=== PATIENT | female | born 1975 | race American Indian/Alaskan Native ===

== ENCOUNTER 2020-12-31 11:58 | Inpatient (IN) | payer MEDICAID ==
[2020-12-31] MEDS ORDERED: dexAMETHasone 4 MG/ML VIAL IV ONE (13:00)
[2020-12-31] MEDS ORDERED: ACETAMINOPHEN 500 MG TAB PO ONE (13:01)
--- NOTE | 2020-12-31 13:06 | Emergency Department Report ---
ED General Adult HPI - General Chief complaint: Dyspnea/Respdistress Stated complaint: COVID SYMPTOMS PUI?: Yes Time Seen by Provider: 12/31/20 12:50 Source: patient, EMS ( EMS documentation not available at time of chart dictation ), RN notes reviewed Mode of arrival: Stretcher Limitations: Physical Limitation - History of Present Illness Initial comments: The patient was evaluated in the emergency department for symptoms described in the history of present illness. He/she was evaluated in the context of the global COVID-19 pandemic, which necessitated consideration that the patient might be at risk for infection with the virus that causes COVID-19. Institutional protocols and algorithms that pertain to the evaluation of patients at risk for COVID-19 are in a state of rapid change based on information released by regulatory bodies including the CDC and federal and state organizations. These policies and algorithms were followed during the patient's care in the emergency department. Please note that these policies, procedures and recommendations changed on a rapid basis. During the entire history and physical examination, I had on complete personal protective equipment. The patient is a 45-year-old female who is not known to myself previously. She is not vaccinated against COVID-19. She states that she is not . She does not smoke, consume alcohol, denies recreational habits, also reports that she typically does not have a primary care physician, see physicians or take medications. She presents to the ER on day 7 with typical Covid symptoms. Symptoms include cough, fever, shortness of breath, loss of taste and smell, myalgias. Denies severe headache, neck pain, chest pain, abdominal pain, urinary symptoms, focal extremity weakness and numbness. Hypoxic in the field to 88%, also febrile in the field with a fever of 103 degrees. Given albuterol, supplemental oxygen, and Tylenol prior to my personal evaluation by EMS. -: Gradual, days(s) Consistency: constant Improves with: none Worsens with: movement - Related Data Allergies Allergy/AdvReac Type Severity Reaction Status Date / Time No Known Allergies Allergy Verified 12/31/20 13:04 ED Review of Systems ROS: Stated complaint: COVID SYMPTOMS Other details as noted in HPI Constitutional: fever, malaise, weakness Eyes: denies: eye discharge ENT: congestion Respiratory: shortness of breath Cardiovascular: denies: chest pain Gastrointestinal: denies: abdominal pain Genitourinary: denies: dysuria Musculoskeletal: arthralgia, myalgia Neurological: weakness Hematological/Lymphatic: denies: easy bleeding ED Physical Exam - General Limitations: Physical Limitation General appearance: alert, anxious, obese - Head Head exam: Present: atraumatic, normocephalic - Eye Eye exam: Present: normal appearance, EOMI. Absent: nystagmus - ENT ENT exam: Present: normal exam, normal orophraynx, mucous membranes moist, normal external ear exam - Neck Neck exam: Present: normal inspection, full ROM. Absent: tenderness, meningismus - Respiratory Respiratory exam: Present: accessory muscle use, other (Pulmonary auscultation not performed secondary to lack of disposable stethoscope). Absent: stridor - Cardiovascular Cardiovascular Exam: Present: regular rate, normal rhythm, other (Regular rate and rhythm noted on residential monitor. Auscultation not performed secondary to lack of disposable stethoscope) - GI/Abdominal GI/Abdominal exam: Present: soft. Absent: distended, tenderness, guarding, rebound, rigid, pulsatile mass - Extremities Exam Extremities exam: Present: normal inspection, full ROM, other (2+ pulses noted in the bilateral upper and lower extremities. There is no palpable cord. negative Homans sign. Muscular compartments are soft. The pelvis is stable.). Absent: pedal edema, calf tenderness - Back Exam Back exam: Present: normal inspection. Absent: tenderness, CVA tenderness (R), CVA tenderness (L), paraspinal tenderness, vertebral tenderness - Neurological Exam Neurological exam: Present: alert, oriented X3, other (No facial droop. Tongue midline. Extraocular movements intact bilaterally. Facial sensation intact to light touch in V1, V2, V3 distribution bilaterally. 5 and a 5 strength in 4 extremities. Sensation intact to light touch in 4 extremities.). Absent: motor sensory deficit - Psychiatric Psychiatric exam: Present: normal affect, normal mood - Skin Skin exam: Present: warm, dry, intact, normal color. Absent: rash ED Course Vital Signs 12/31/20 12/31/20 12/31/20 12:49 12:54 13:01 Temperature 98.9 F Pulse Rate 90 79 89 Respiratory 15 26 H 18 Rate Blood Pressure 108/66 Blood Pressure 105/70 [Left] O2 Sat by Pulse 99 96 99 Oximetry 12/31/20 12/31/20 12/31/20 13:15 13:31 13:45 Temperature Pulse Rate 89 87 83 Respiratory 17 25 H 27 H Rate Blood Pressure 114/62 104/59 112/67 Blood Pressure [Left] O2 Sat by Pulse 96 99 100 Oximetry 12/31/20 12/31/20 12/31/20 14:01 14:15 14:30 Temperature Pulse Rate 87 83 90 Respiratory 19 25 H 19 Rate Blood Pressure 110/62 120/62 120/62 Blood Pressure [Left] O2 Sat by Pulse 96 98 91 Oximetry 12/31/20 12/31/20 14:46 15:00 Temperature Pulse Rate 84 89 Respiratory 24 29 H Rate Blood Pressure 116/74 Blood Pressure [Left] O2 Sat by Pulse 99 97 Oximetry - Reevaluation(s) Reevaluation #1: 12/31/20 13:04 Differential diagnosis, including but not limited to: COVID-19, hypoxic respiratory failure, COVID-19 vaccination not done Assessment and plan: 45-year-old female with acute hypoxic respiratory failure, likely secondary to COVID-19. Patient requiring 3 L of supplemental oxygen. Counseled patient on natural history of COVID-19. Strongly encourage patient to consider outpatient vaccination series once she has recovered. Recommend admission to the medical service for hypoxic respiratory failure. Administer steroids, continue supplemental oxygen, obtain typical laboratory studies. Have discussed this plan of care with the patient. She has articulated understanding. She is agreeable to this plan of care. Defer to inpatient team to obtain ID consult to assess for suitability for re mdesivir 12/31/20 13:49 laboratory studies demonstrate elevated inflammatory markers, hypokalemia, microcytic anemia. Patient denies bright red blood per rectum and hematemesis to myself. Start iron sulfate, potassium supplementation. Hospital physician, Dr. Geo Naidu to admit ED Medical Decision Making - Lab Data Result diagrams: 12/31/20 13:06 12/31/20 13:06 Vital Signs 12/31/20 12/31/20 12/31/20 12:49 12:54 13:01 Temperature 98.9 F Pulse Rate 90 79 89 Respiratory 15 26 H 18 Rate Blood Pressure 108/66 Blood Pressure 105/70 [Left] O2 Sat by Pulse 99 96 99 Oximetry Lab Results 12/31/20 12/31/20 12/31/20 Range/Units 13:06 13:06 13:06 WBC 3.7 L (4.5-11.0) K/mm3 RBC 4.78 (3.65-5.03) M/mm3 Hgb 8.8 L (10.1-14.3) gm/dl Hct 29.1 L (30.3-42.9) % MCV 61 L (79-97) fl MCH 18 L (28-32) pg MCHC 30 (30-34) % RDW 19.3 H (13.2-15.2) % Plt Count 334 (140-440) K/mm3 Lymph % (Auto) 17.8 (13.4-35.0) % [place] % (Auto) 9.9 H (0.0-7.3) % Eos % (Auto) 0.0 (0.0-4.3) % Baso % (Auto) 0.5 (0.0-1.8) % Lymph # (Auto) 0.7 L (1.2-5.4) K/mm3 [place] # (Auto) 0.4 (0.0-0.8) K/mm3 Eos # (Auto) 0.0 (0.0-0.4) K/mm3 Baso # (Auto) 0.0 (0.0-0.1) K/mm3 Seg Neutrophils % 71.8 H (40.0-70.0) % Seg Neutrophils # 2.6 (1.8-7.7) K/mm3 PT 13.4 (12.2-14.9) Sec. INR 0.96 (0.87-1.13) APTT 36.1 (24.2-36.6) Sec. D-Dimer 141.20 (0-234) ng/mlDDU Sodium 136 L (137-145) mmol/L Potassium 3.4 L (3.6-5.0) mmol/L Chloride 97.6 L (98-107) mmol/L Carbon Dioxide 28 (22-30) mmol/L Anion Gap 14 mmol/L BUN 11 (7-17) mg/dL Creatinine 0.7 (0.6-1.2) mg/dL Estimated GFR > 60 ml/min BUN/Creatinine Ratio 16 % Glucose 98 (65-100) mg/dL Calcium 8.7 (8.4-10.2) mg/dL Magnesium 2.10 (1.7-2.3) mg/dL Total Bilirubin 0.30 (0.1-1.2) mg/dL AST 49 H (5-40) units/L ALT 31 (7-56) units/L Alkaline Phosphatase 37 (35-129) units/L Lactate Dehydrogenase (91-180) units/L C-Reactive Protein (0.00-1.30) mg/dL Total Protein 7.3 (6.3-8.2) g/dL Albumin 3.7 L (3.9-5) g/dL Albumin/Globulin Ratio 1.0 % // Range/Units 13:06 WBC (4.5-11.0) K/mm3 RBC (3.65-5.03) M/mm3 Hgb (10.1-14.3) gm/dl Hct (30.3-42.9) % MCV (79-97) fl MCH (28-32) pg MCHC (30-34) % RDW (13.2-15.2) % Plt Count (140-440) K/mm3 Lymph % (Auto) (13.4-35.0) % [place] % (Auto) (0.0-7.3) % Eos % (Auto) (0.0-4.3) % Baso % (Auto) (0.0-1.8) % Lymph # (Auto) (1.2-5.4) K/mm3 [place] # (Auto) (0.0-0.8) K/mm3 Eos # (Auto) (0.0-0.4) K/mm3 Baso # (Auto) (0.0-0.1) K/mm3 Seg Neutrophils % (40.0-70.0) % Seg Neutrophils # (1.8-7.7) K/mm3 PT (12.2-14.9) Sec. INR (0.87-1.13) APTT (24.2-36.6) Sec. D-Dimer (0-234) ng/mlDDU Sodium (137-145) mmol/L Potassium (3.6-5.0) mmol/L Chloride (98-107) mmol/L Carbon Dioxide (22-30) mmol/L Anion Gap mmol/L BUN (7-17) mg/dL Creatinine (0.6-1.2) mg/dL Estimated GFR ml/min BUN/Creatinine Ratio % Glucose (65-100) mg/dL Calcium (8.4-10.2) mg/dL Magnesium (1.7-2.3) mg/dL Total Bilirubin (0.1-1.2) mg/dL AST (5-40) units/L ALT (7-56) units/L Alkaline Phosphatase (35-129) units/L Lactate Dehydrogenase 299 H (91-180) units/L C-Reactive Protein 2.40 H (0.00-1.30) mg/dL Total Protein (6.3-8.2) g/dL Albumin (3.9-5) g/dL Albumin/Globulin Ratio % - EKG Data -: EKG Interpreted by Ct EKG shows normal: sinus rhythm Rate: tachycardia - EKG Data 12/31/20 13:39 EKG interpreted at 13: 27 Sinus rhythm, 86 bpm. Normal axis, normal P wave axis. Atrial enlargement. Abnormal EKG. Not a STEMI. Poor R wave progression - Radiology Data Radiology results: pending, report reviewed, image reviewed [facility] [address] [place] [address] XRay Report Signed Patient: JOSEPH GOMEZ MR#: [id number] : 1975 Acct:[id number] Age/Sex: 45 / F ADM Date: 12/31/20 Loc: ED Attending Dr: Ordering Physician: KIARRA STEVE MD Date of Service: 12/31/20 Procedure(s): XR chest 1V ap Accession Number(s): [id number] cc: KIARRA STEVE MD Fluoro Time In Minutes: CHEST 1 VIEW 12/31/2020 2:45 PM INDICATION / CLINICAL INFORMATION: Dyspnea. COMPARISON: None available. FINDINGS: SUPPORT DEVICES: None. HEART / MEDIASTINUM: Borderline enlarged LUNGS / PLEURA: Suboptimal in spiratory effort with moderate bilateral parenchymal disease both mid to lower lung [place] characteristic for Covid pneumonia No pneumothorax. ADDITIONAL FINDINGS: No significant additional findings. IMPRESSION: 1. Moderate bilateral Covid pneumonia Signer Name: Link Ellis MD Signed: 12/31/2020 3:15 PM Workstation Name: [id number] Transcribed By: TL Dictated By: Link Ellis MD Electronically Authenticated By: Link Ellis MD Signed Date/Time: 12/31/20 1515 DD/ 1514 Critical care attestation.: If time is entered above; I have spent that time in minutes in the direct care of this critically ill patient, excluding procedure time. ED Disposition Clinical Impression: Acute respiratory failure with hypoxia, Suspected COVID-19 virus infection, COVID-19 vaccination not done, Microcytic anemia, Hypokalemia Disposition: ADMITTED INPATIENT Is pt being admited?: Yes Does the pt Need Aspirin: No Condition: Fair Referrals: PRIMARY CARE, [Primary Care Provider] - 3-5 Days
[2020-12-31 13:33] LABS: Basophils % (Auto) 0.5 % (0.0-1.8); Hematocrit 29.1 % (30.3-42.9); Hemoglobin 8.8 gm/dl (10.1-14.3); Lymphocytes # (Auto) 0.7 K/mm3 (1.2-5.4); Lymphocytes % (Auto) 17.8 % (13.4-35.0); Mean Corpuscular HGB Conc 30 % (30-34); Mean Corpuscular Volume 61 fl (79-97); Monocytes # (Auto) 0.4 K/mm3 (0.0-0.8); Monocytes % (Auto) 9.9 % (0.0-7.3); Platelet Count 334 K/mm3 (140-440); Red Blood Count 4.78 M/mm3 (3.65-5.03); Red Cell Distribution Width 19.3 % (13.2-15.2)
[2020-12-31 13:44] LABS: INR 0.96 (0.87-1.13)
[2020-12-31 13:45] LABS: Partial Thromboplastin Time 36.1 Sec. (24.2-36.6)
[2020-12-31 13:46] LABS: Alanine Aminotransferase 31 units/L (7-56); Albumin 3.7 g/dL (3.9-5); Blood Urea Nitrogen 11 mg/dL (7-17); Calcium 8.7 mg/dL (8.4-10.2); Hemolysis Index 1
[2020-12-31 13:47] LABS: BUN/Creatinine Ratio 16; C-Reactive Protein 2.4 mg/dL (0.00-1.30)
[2020-12-31] MEDS ORDERED: POTASSIUM CHLORIDE ER 20 MEQ TAB PO ONE (13:48)
[2020-12-31] MEDS ORDERED: FERROUS SULFATE 325 MG TAB PO ONE (13:49)
[2020-12-31 14:25] LABS: HCG,Quantitative < 0.500 mIU/mL (0-4)
[2020-12-31] MEDS ORDERED: AZITHROMYCIN/NS 500 MG/250 ML 500 MG/250 ML BAG IV ONE (15:07)
--- NOTE | 2020-12-31 15:19 | XRay Report ---
CHEST 1 VIEW 12/31/2020 2:45 PM INDICATION / CLINICAL INFORMATION: Dyspnea. COMPARISON: None available. FINDINGS: SUPPORT DEVICES: None. HEART / MEDIASTINUM: Borderline enlarged LUNGS / PLEURA: Suboptimal inspiratory effort with moderate bilateral parenchymal disease both mid to lower lung [place] characteristic for Covid pneumonia No pneumothorax. ADDITIONAL FINDINGS: No significant additional findings. IMPRESSION: 1. Moderate bilateral Covid pneumonia Signer Name: Link Ellis MD Signed: 12/31/2020 3:15 PM Workstation Name: [id number]
[2020-12-31] MEDS ORDERED: cefTRIAXone/NS 1 GM/50 ML 1 GM/50 ML BAG IV ONE (16:00)
--- NOTE | 2021-01-01 07:03 | History and Physical Report ---
History of Present Illness Date of examination: 12/31/20 Date of admission: 12/31/20 13:50 Chief complaint: Fever shortness of breath and body aches for 3 days. History of present illness: Foot 45-year-old female with no significant past medical history comes in for cough fever shortness of breath loss of taste and smell and body aches for 3 days. Denies severe headache neck pain chest pain and abdominal pain. In in the emergency room patient was hypoxic at 88%. Also fever of 103 degrees. Was given albuterol supplemental oxygen and Tylenol. Patient being admitted for highly likely Covid pneumonia patient is unvaccinated. Past History Past Medical History: No medical history Past Surgical History: No surgical history Social history: lives with family, full code Family history: hypertension Medications and Allergies Allergies Allergy/AdvReac Type Severity Reaction Status Date / Time No Known Allergies Allergy Verified 12/31/20 13:04 Review of Systems All systems: negative Constitutional: fever, chills, fatigue, poor appetite Cardiovascular: shortness of breath Respiratory: cough, cough with sputum, shortness of breath, dyspnea on exertion Gastrointestinal: nausea Exam - Constitutional Vitals: Temp Pulse Resp BP Pulse Ox 98.9 F 92 H 30 H 101/65 96 12/31/20 12:54 12/31/20 18:30 12/31/20 18:30 12/31/20 18:30 12/31/20 21:40 General appearance: Present: mild distress, well-nourished - EENT Eyes: Present: PERRL ENT: hearing intact, clear oral mucosa - Neck Neck: Present: supple, normal ROM - Respiratory Respiratory effort: normal Respiratory: bilateral: CTA - Cardiovascular Heart rate: 78 Rhythm: regular Heart Sounds: Present: S1 & S2. Absent: rub, click - Extremities Extremities: pulses symmetrical, No edema Peripheral Pulses: within normal limits - Abdominal General gastrointestinal: Present: soft, non-tender, non-distended, normal bowel sounds Female genitourinary: Present: normal - Integumentary Integumentary: Present: clear, warm, dry - Musculoskeletal Musculoskeletal: gait normal, strength equal bilaterally - Psychiatric Psychiatric: appropriate mood/affect, intact judgment & insight - Neurologic Neurologic: CNII-XII intact, moves all extremities Results - Labs CBC & Chem 7: 12/31/20 13:06 12/31/20 13:06 Labs: Laboratory Last Values WBC 3.7 K/mm3 (4.5-11.0) L 12/31/20 13:06 RBC 4.78 M/mm3 (3.65-5.03) 12/31/20 13:06 Hgb 8.8 gm/dl (10.1-14.3) L 12/31/20 13:06 Hct 29.1 % (30.3-42.9) L 12/31/20 13:06 MCV 61 fl (79-97) L 12/31/20 13:06 MCH 18 pg (28-32) L 12/31/20 13:06 MCHC 30 % (30-34) 12/31/20 13:06 RDW 19.3 % (13.2-15.2) H 12/31/20 13:06 Plt Count 334 K/mm3 (140-440) 12/31/20 13:06 Lymph % (Auto) 17.8 % (13.4-35.0) 12/31/20 13:06 [place] % (Auto) 9.9 % (0.0-7.3) H 12/31/20 13:06 Eos % (Auto) 0.0 % (0.0-4.3) 12/31/20 13:06 Baso % (Auto) 0.5 % (0.0-1.8) 12/31/20 13:06 Lymph # (Auto) 0.7 K/mm3 (1.2-5.4) L 12/31/20 13:06 [place] # (Auto) 0.4 K/mm3 (0.0-0.8) 12/31/20 13:06 Eos # (Auto) 0.0 K/mm3 (0.0-0.4) 12/31/20 13:06 Baso # (Auto) 0.0 K/mm3 (0.0-0.1) 12/31/20 13:06 Seg Neutrophils % 71.8 % (40.0-70.0) H 12/31/20 13:06 Seg Neutrophils # 2.6 K/mm3 (1.8-7.7) 12/31/20 13:06 PT 13.4 Sec. (12.2-14.9) 12/31/20 13:06 INR 0.96 (0.87-1.13) 12/31/20 13:06 APTT 36.1 Sec. (24.2-36.6) 12/31/20 13:06 D-Dimer 141.20 ng/mlDDU (0-234) 12/31/20 13:06 Sodium 136 mmol/L (137-145) L 12/31/20 13:06 Potassium 3.4 mmol/L (3.6-5.0) L 12/31/20 13:06 Chloride 97.6 mmol/L (98-107) L 12/31/20 13:06 Carbon Dioxide 28 mmol/L (22-30) 12/31/20 13:06 Anion Gap 14 mmol/L 12/31/20 13:06 BUN 11 mg/dL (7-17) 12/31/20 13:06 Creatinine 0.7 mg/dL (0.6-1.2) 12/31/20 13:06 Estimated GFR > 60 ml/min 12/31/20 13:06 BUN/Creatinine Ratio 16 % 12/31/20 13:06 Glucose 98 mg/dL (65-100) 12/31/20 13:06 Calcium 8.7 mg/dL (8.4-10.2) 12/31/20 13:06 Magnesium 2.10 mg/dL (1.7-2.3) 12/31/20 13:06 Ferritin 60.6 ng/mL (10.0-200.0) 12/31/20 13:06 Total Bilirubin 0.30 mg/dL (0.1-1.2) 12/31/20 13:06 AST 49 units/L (5-40) H 12/31/20 13:06 ALT 31 units/L (7-56) 12/31/20 13:06 Alkaline Phosphatase 37 units/L (35-129) 12/31/20 13:06 Lactate Dehydrogenase 299 units/L (91-180) H 12/31/20 13:06 C-Reactive Protein 2.40 mg/dL (0.00-1.30) H 12/31/20 13:06 Total Protein 7.3 g/dL (6.3-8.2) 12/31/20 13:06 Albumin 3.7 g/dL (3.9-5) L 12/31/20 13:06 Albumin/Globulin Ratio 1.0 % 12/31/20 13:06 Procalcitonin < 0.05 ng/mL (<0.15) 12/31/20 13:06 HCG, Quant < 0.500 mIU/mL (0-4) 12/31/20 13:06 Microbiology: Microbiology 12/31/20 15:25 Peripheral/Venous Blood Culture - Preliminary Culture in Progress 12/31/20 15:25 Peripheral/Venous Blood Culture - Preliminary Culture in Progress - Imaging and Cardiology Chest x-ray: report reviewed Imaging and Cardiology: Chest x-ray Moderate bilateral COVID pneumonia Assessment and Plan Advance Directives: Yes (Full code) VTE prophylaxis?: Chemical Plan of care discussed with patient/family: Yes - Patient Problems (1) Acute respiratory failure with hypoxia Current Visit: Yes Status: Acute Plan to address problem: Patient on 4 L nasal cannula oxygen Titrate oxygen to keep the sats level above 92% (2) SIRS (systemic inflammatory response syndrome) Current Visit: Yes Status: Acute Plan to address problem: Inflammatory markers are elevated LDH is 299 CRP is 2.4 (3) Bilateral pneumonia Current Visit: Yes Status: Acute Plan to address problem: Treat as currently acquired pneumonia for now Discontinue antibiotics if procalcitonin is normal ID consult requested (4) Suspected COVID-19 virus infection Current Visit: Yes Status: Acute Plan to address problem: Coronavirus PCR in a.m. IV Decadron at 8 mg every 24 initiated (5) Hypokalemia Current Visit: Yes Status: Acute Plan to address problem: Supplemented (6) Anemia Current Visit: Yes Status: Chronic Qualifiers: Anemia type: unspecified type Qualified Code(s): D64.9 - Anemia, unspecified Plan to address problem: Anemia work-up (7) Hyponatremia Current Visit: Yes Status: Acute Plan to address problem: IV fluids for 10 to 12 hours in the form of normal saline (8) Hypokalemia Current Visit: Yes Status: Acute Plan to address problem: Supplemented (9) Transaminitis Current Visit: Yes Status: Acute Plan to address problem: Mild Possibly secondary to Covid (10) DVT prophylaxis Current Visit: Yes Status: Acute Plan to address problem: On anticoagulation and GI prophylaxis
[2021-01-01] MEDS ORDERED: POTASSIUM CHLORIDE ER 20 MEQ TAB PO NR (07:30)
--- NOTE | 2021-01-01 08:24 | Progress Note ---
Assessment and Plan Assessment and plan: --Acute respiratory failure with hypoxia Current Visit: Yes Status: Acute Patient on 4 L nasal cannula oxygen Titrate oxygen to keep the sats level above 92% -- SIRS (systemic inflammatory response syndrome) Current Visit: Yes Status: Acute Inflammatory markers are elevated LDH is 299 CRP is 2.4 --Bilateral pneumonia Current Visit: Yes Status: Acute Treat as currently acquired pneumonia for now Discontinue antibiotics if procalcitonin is normal ID consult requested --PUI/ suspected COVID-19 virus infection Current Visit: Yes Status: Acute Coronavirus PCR in a.m. IV Decadron at 8 mg every 24 initiated --Hypokalemia Current Visit: Yes Status: Acute Supplemented -- Anemia Current Visit: Yes Status: Chronic Anemia work-up --Hyponatremia Current Visit: Yes Status: Acute IV fluids for 10 to 12 hours in the form of normal saline -- Hypokalemia Current Visit: Yes Status: Acute Supplemented -- Transaminitis Current Visit: Yes Status: Acute Plan to address problem: Mild Possibly secondary to Covid --Morbid obesity; BMI 41.3/obesity hypoventilation Current Visit: Yes Status: Chronic Outpatient sleep study to rule out obstructive sleep apnea Patient needs weight reduction when medically stable -- DVT prophylaxis Current Visit: Yes Status: Acute Plan to address problem: On anticoagulation and GI prophylaxis History Interval history: I have seen and examined the patient at the bedside this morning Patient's chart and medications reviewed Patient complains of mild shortness of breath Hospitalist Physical - Constitutional Vitals: Temp Pulse Resp BP Pulse Ox 98.9 F 90 14 106/68 93 12/31/20 12:54 01/01/21 07:30 01/01/21 07:30 01/01/21 07:30 01/01/21 07:30 General appearance: Present: mild distress, well-nourished, obese (Morbidly obese) - EENT Eyes: Present: PERRL, EOM intact - Neck Neck: Present: supple, normal ROM - Respiratory Respiratory effort: normal Respiratory: bilateral: diminished, negative: rales, rhonchi, wheezing - Cardiovascular Rhythm: regular Heart Sounds: Present: S1 & S2 - Extremities Extremities: no ischemia, No edema - Abdominal General gastrointestinal: soft, non-tender, non-distended, normal bowel sounds - Integumentary Integumentary: Present: clear, warm - Psychiatric Psychiatric: appropriate mood/affect, cooperative - Neurologic Neurologic: CNII-XII intact, moves all extremities Results - Labs CBC & Chem 7: 12/31/20 13:06 01/01/21 10:57 Labs: Laboratory Last Values WBC 3.7 K/mm3 (4.5-11.0) L 12/31/20 13:06 RBC 4.78 M/mm3 (3.65-5.03) 12/31/20 13:06 Hgb 8.8 gm/dl (10.1-14.3) L 12/31/20 13:06 Hct 29.1 % (30.3-42.9) L 12/31/20 13:06 MCV 61 fl (79-97) L 12/31/20 13:06 MCH 18 pg (28-32) L 12/31/20 13:06 MCHC 30 % (30-34) 12/31/20 13:06 RDW 19.3 % (13.2-15.2) H 12/31/20 13:06 Plt Count 334 K/mm3 (140-440) 12/31/20 13:06 Lymph % (Auto) 17.8 % (13.4-35.0) 12/31/20 13:06 [place] % (Auto) 9.9 % (0.0-7.3) H 12/31/20 13:06 Eos % (Auto) 0.0 % (0.0-4.3) 12/31/20 13:06 Baso % (Auto) 0.5 % (0.0-1.8) 12/31/20 13:06 Lymph # (Auto) 0.7 K/mm3 (1.2-5.4) L 12/31/20 13:06 [place] # (Auto) 0.4 K/mm3 (0.0-0.8) 12/31/20 13:06 Eos # (Auto) 0.0 K/mm3 (0.0-0.4) 12/31/20 13:06 Baso # (Auto) 0.0 K/mm3 (0.0-0.1) 12/31/20 13:06 Seg Neutrophils % 71.8 % (40.0-70.0) H 12/31/20 13:06 Seg Neutrophils # 2.6 K/mm3 (1.8-7.7) 12/31/20 13:06 PT 13.4 Sec. (12.2-14.9) 12/31/20 13:06 INR 0.96 (0.87-1.13) 12/31/20 13:06 APTT 36.1 Sec. (24.2-36.6) 12/31/20 13:06 D-Dimer 141.20 ng/mlDDU (0-234) 12/31/20 13:06 Sodium 136 mmol/L (137-145) L 12/31/20 13:06 Potassium 3.4 mmol/L (3.6-5.0) L 12/31/20 13:06 Chloride 97.6 mmol/L (98-107) L 12/31/20 13:06 Carbon Dioxide 28 mmol/L (22-30) 12/31/20 13:06 Anion Gap 14 mmol/L 12/31/20 13:06 BUN 11 mg/dL (7-17) 12/31/20 13:06 Creatinine 0.7 mg/dL (0.6-1.2) 12/31/20 13:06 Estimated GFR > 60 ml/min 12/31/20 13:06 BUN/Creatinine Ratio 16 % 12/31/20 13:06 Glucose 98 mg/dL (65-100) 12/31/20 13:06 Calcium 8.7 mg/dL (8.4-10.2) 12/31/20 13:06 Magnesium 2.10 mg/dL (1.7-2.3) 12/31/20 13:06 Ferritin 60.6 ng/mL (10.0-200.0) 12/31/20 13:06 Total Bilirubin 0.30 mg/dL (0.1-1.2) 12/31/20 13:06 AST 49 units/L (5-40) H 12/31/20 13:06 ALT 31 units/L (7-56) 12/31/20 13:06 Alkaline Phosphatase 37 units/L (35-129) 12/31/20 13:06 Lactate Dehydrogenase 299 units/L (91-180) H 12/31/20 13:06 C-Reactive Protein 2.40 mg/dL (0.00-1.30) H 12/31/20 13:06 Total Protein 7.3 g/dL (6.3-8.2) 12/31/20 13:06 Albumin 3.7 g/dL (3.9-5) L 12/31/20 13:06 Albumin/Globulin Ratio 1.0 % 12/31/20 13:06 Procalcitonin < 0.05 ng/mL (<0.15) 12/31/20 13:06 HCG, Quant < 0.500 mIU/mL (0-4) 12/31/20 13:06 Microbiology: Microbiology 12/31/20 15:25 Peripheral/Venous Blood Culture - Preliminary Culture in Progress 12/31/20 15:25 Peripheral/Venous Blood Culture - Preliminary Culture in Progress Active Medications - Current Medications Current Medications: Generic Name Dose Route Start Last Admin Trade Name Freq PRN Reason Stop Dose Admin Potassium Chloride 20 meq 01/01/21 07:30 Potassium Chloride Er 20 Meq Tab PO 01/01/21 12:00 ONCE@0730 NR
[2021-01-01] MEDS: ASCORBIC ACID 500 MG TAB PO SCH ×2 (10:41→22:29)
[2021-01-01] MEDS: ZINC SULFATE 220 MG CAP PO SCH ×2 (10:41→22:29)
[2021-01-01] MEDS: FAMOTIDINE 20 MG TAB PO SCH ×2 (10:41→22:29)
[2021-01-01 11:48] LABS: Blood Urea Nitrogen 11 mg/dL (7-17); Calcium 8.9 mg/dL (8.4-10.2); Hemolysis Index 0
[2021-01-01 11:57] LABS: BUN/Creatinine Ratio 18
[2021-01-01] MEDS ORDERED: dexAMETHasone 4 MG/ML VIAL IV ONE (18:20)
[2021-01-01] MEDS ORDERED: REMDESIVIR 200 MG in SODIUM CHLORIDE 0.9% 250ML 250 ML IV ONE (19:30)
[2021-01-01 19:49] LABS: Alanine Aminotransferase 35 units/L (7-56); Albumin 3.7 g/dL (3.9-5); Blood Urea Nitrogen 11 mg/dL (7-17); Calcium 8.3 mg/dL (8.4-10.2); Hemolysis Index 3
[2021-01-01 19:55] LABS: BUN/Creatinine Ratio 18
[2021-01-01] MEDS: SODIUM CHLORIDE 0.9% 50 ML IVPB IV SCH (22:30)
[2021-01-02 06:05] LABS: Alanine Aminotransferase 33 units/L (7-56); Albumin 3.7 g/dL (3.9-5); Blood Urea Nitrogen 10 mg/dL (7-17); Calcium 8.3 mg/dL (8.4-10.2); Hemolysis Index 0
[2021-01-02 06:22] LABS: BUN/Creatinine Ratio 20
--- NOTE | 2021-01-02 08:54 | Electrocardiograph Report ---
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
[2021-01-02] MEDS: dexAMETHasone 4 MG/ML VIAL IV SCH (10:08)
[2021-01-02] MEDS: ACETAMINOPHEN 325 MG TAB PO PRN (10:08)
[2021-01-02] MEDS: FAMOTIDINE 20 MG TAB PO SCH ×2 (10:08→21:53)
[2021-01-02] MEDS: ASCORBIC ACID 500 MG TAB PO SCH ×2 (10:08→21:53)
[2021-01-02] MEDS: SODIUM CHLORIDE 0.9% 1000 ML 1,000 ML IV SCH (10:10)
[2021-01-02] MEDS: ZINC SULFATE 220 MG CAP PO SCH ×2 (10:10→21:53)
--- NOTE | 2021-01-02 12:54 | Progress Note ---
Assessment and Plan Assessment and plan: --COVID-19 virus infection; solation precautions contact and droplet Patient is hypoxic requiring 2 to 3 L of nasal cannula oxygen Dexamethasone 8 mg IV daily total 10 doses Remdesivir per protocol total 5 doses Prone positioning Check inflammatory markers Home O2 evaluation Supportive medications zinc, ascorbic acid, vitamin D3 ID evaluation noted and appreciated We will closely monitor the patient and adjust the management as needed Plan of care reviewed with the patient and her nurse --Acute respiratory failure with hypoxia Current Visit: Yes Status: Acute Patient on 4 L nasal cannula oxygen Titrate oxygen to keep the sats level above 92% -- SIRS (systemic inflammatory response syndrome) Current Visit: Yes Status: Acute Inflammatory markers are elevated LDH is 299 CRP is 2.4 --Bilateral pneumonia Current Visit: Yes Status: Acute 1 empiric antibiotics, however procalcitonin is normal level No indication for antibiotics, discontinued Oxygen wean as tolerated, home O2 evaluation, follow cultures --Hypokalemia Current Visit: Yes Status: Acute Supplemented -- Anemia Current Visit: Yes Status: Chronic Anemia work-up. Monitor H&H --Hyponatremia/present on admission Current Visit: Yes Status: Acute Improved continue IV fluids normal saline Closely monitor -- Transaminitis Current Visit: Yes Status: Acute Mild, Possibly secondary to Covid --Morbid obesity; BMI 41.3/obesity hypoventilation Current Visit: Yes Status: Chronic Outpatient sleep study to rule out obstructive sleep apnea Patient needs weight reduction when medically stable Diet modification and exercise as tolerated and weight reduction -- DVT prophylaxis Current Visit: Yes Status: Acute On anticoagulation and GI prophylaxis We will closely monitor the patient and adjust management as needed Plan of care reviewed with the patient and her nurse 45-year-old morbidly obese female patient was admitted through emergency room with fever generalized body pains admitted as PUI Kumar PCR is tested positive, patient is evaluated by ID and is receiving treatment per COVID-19 guidelines. Disposition; follow clinically, follow consultants evaluation recommendations, discharge when medically stable Home O2 evaluation, encourage proning . History Interval history: I have seen and examined the patient at the bedside Patient's chart and medications reviewed Patient complains of severe shortness of breath On 3 L nasal cannula Hospitalist Physical - Constitutional Vitals: Temp Pulse Resp BP Pulse Ox 98.9 F 95 H 27 H 115/71 94 12/31/20 12:54 01/02/21 01:00 01/02/21 01:00 01/02/21 06:00 01/02/21 06:00 General appearance: Present: mild distress, well-nourished, obese (Morbidly obese) - EENT Eyes: Present: PERRL, EOM intact - Neck Neck: Present: supple, normal ROM - Cardiovascular Rhythm: regular Heart Sounds: Present: S1 & S2 - Extremities Extremities: no ischemia, No edema - Abdominal General gastrointestinal: soft, non-tender, non-distended, normal bowel sounds - Integumentary Integumentary: Present: clear, warm - Psychiatric Psychiatric: appropriate mood/affect, cooperative - Neurologic Neurologic: CNII-XII intact, moves all extremities Results - Labs CBC & Chem 7: 12/31/20 13:06 01/02/21 05:11 Labs: Laboratory Last Values WBC 3.7 K/mm3 (4.5-11.0) L 12/31/20 13:06 RBC 4.78 M/mm3 (3.65-5.03) 12/31/20 13:06 Hgb 8.8 gm/dl (10.1-14.3) L 12/31/20 13:06 Hct 29.1 % (30.3-42.9) L 12/31/20 13:06 MCV 61 fl (79-97) L 12/31/20 13:06 MCH 18 pg (28-32) L 12/31/20 13:06 MCHC 30 % (30-34) 12/31/20 13:06 RDW 19.3 % (13.2-15.2) H 12/31/20 13:06 Plt Count 334 K/mm3 (140-440) 12/31/20 13:06 Lymph % (Auto) 17.8 % (13.4-35.0) 12/31/20 13:06 [place] % (Auto) 9.9 % (0.0-7.3) H 12/31/20 13:06 Eos % (Auto) 0.0 % (0.0-4.3) 12/31/20 13:06 Baso % (Auto) 0.5 % (0.0-1.8) 12/31/20 13:06 Lymph # (Auto) 0.7 K/mm3 (1.2-5.4) L 12/31/20 13:06 [place] # (Auto) 0.4 K/mm3 (0.0-0.8) 12/31/20 13:06 Eos # (Auto) 0.0 K/mm3 (0.0-0.4) 12/31/20 13:06 Baso # (Auto) 0.0 K/mm3 (0.0-0.1) 12/31/20 13:06 Seg Neutrophils % 71.8 % (40.0-70.0) H 12/31/20 13:06 Seg Neutrophils # 2.6 K/mm3 (1.8-7.7) 12/31/20 13:06 PT 13.4 Sec. (12.2-14.9) 12/31/20 13:06 INR 0.96 (0.87-1.13) 12/31/20 13:06 APTT 36.1 Sec. (24.2-36.6) 12/31/20 13:06 D-Dimer 141.20 ng/mlDDU (0-234) 12/31/20 13:06 Sodium 137 mmol/L (137-145) 01/02/21 05:11 Potassium 3.8 mmol/L (3.6-5.0) 01/02/21 05:11 Chloride 100.0 mmol/L (98-107) 01/02/21 05:11 Carbon Dioxide 26 mmol/L (22-30) 01/02/21 05:11 Anion Gap 15 mmol/L 01/02/21 05:11 BUN 10 mg/dL (7-17) 01/02/21 05:11 Creatinine 0.5 mg/dL (0.6-1.2) L 01/02/21 05:11 Estimated GFR > 60 ml/min 01/02/21 05:11 BUN/Creatinine Ratio 20 % 01/02/21 05:11 Glucose 111 mg/dL (65-100) H 01/02/21 05:11 Calcium 8.3 mg/dL (8.4-10.2) L 01/02/21 05:11 Magnesium 2.10 mg/dL (1.7-2.3) 12/31/20 13:06 Ferritin 60.6 ng/mL (10.0-200.0) 12/31/20 13:06 Total Bilirubin 0.30 mg/dL (0.1-1.2) 01/02/21 05:11 AST 45 units/L (5-40) H 01/02/21 05:11 ALT 33 units/L (7-56) 01/02/21 05:11 Alkaline Phosphatase 38 units/L (35-129) 01/02/21 05:11 Lactate Dehydrogenase 299 units/L (91-180) H 12/31/20 13:06 C-Reactive Protein 2.40 mg/dL (0.00-1.30) H 12/31/20 13:06 Total Protein 7.3 g/dL (6.3-8.2) 01/02/21 05:11 Albumin 3.7 g/dL (3.9-5) L 01/02/21 05:11 Albumin/Globulin Ratio 1.0 % 01/02/21 05:11 Procalcitonin < 0.05 ng/mL (<0.15) 12/31/20 13:06 HCG, Quant < 0.500 mIU/mL (0-4) 12/31/20 13:06 Coronavirus (PCR) Positive (Negative) A 01/01/21 Unknown Microbiology: Microbiology 12/31/20 15:25 Peripheral/Venous Blood Culture - Preliminary NO GROWTH AFTER 24 HOURS 12/31/20 15:25 Peripheral/Venous Blood Culture - Preliminary NO GROWTH AFTER 24 HOURS Active Medications - Current Medications Current Medications: Generic Name Dose Route Start Last Admin Trade Name Freq PRN Reason Stop Dose Admin Acetaminophen 650 mg 01/01/21 09:00 01/02/21 10:08 Acetaminophen 325 Mg Tab PO 650 mg Q4H PRN Administration Pain, Mild (1-3) Ascorbic Acid 500 mg 01/01/21 10:00 01/02/21 10:08 Ascorbic Acid 500 Mg Tab PO 500 mg BID FAREED Administration Dexamethasone 8 mg 01/02/21 10:00 01/02/21 10:08 Dexamethasone 4 Mg/Ml Vial IV 01/11/21 10:01 8 mg DAILY FAREED Administration Famotidine 20 mg 01/01/21 10:00 01/02/21 10:08 Famotidine 20 Mg Tab PO 20 mg BID FAREED Administration Sodium Chloride 1,000 mls @ 75 mls/hr 01/01/21 09:00 01/02/21 10:10 Nacl 0.9% 1000 Ml IV 75 mls/hr DIRECT FAREED Administration REMDESIVIR 100 mg/ Sodium 250 mls @ 500 mls/hr 01/02/21 21:00 Chloride IV 01/05/21 21:29 Q24HR@2100 FAREED Sodium Chloride 50 ml 01/01/21 19:30 01/01/21 22:30 Sodium Chloride 0.9% 50 Ml Ivpb IV 01/04/21 21:01 50 ml Q24HR@2100 FAREED Administration Zinc Sulfate 220 mg 01/01/21 10:00 01/02/21 10:10 Zinc Sulfate 220 Mg Cap PO 220 mg BID FAREED Administration
--- NOTE | 2021-01-02 14:31 | Consultation ---
History of Present Illness - Reason for Consult Consult date: 01/02/21 - History of Present Illness 45-year-old female past medical history morbid obesity presented to hospital complaining of cough, fever, shortness of breath and other common Covid symptoms. The began personally 3 days prior to admission has been more since onset. She otherwise denies any acute symptoms. She was found to be hypoxic to 88% on presentation to the emergency room. She is unvaccinated against Covid. Afebrile with a white count 3.7. Covid positive. Normal renal function. Normal procalcitonin. Blood cultures no growth so far. Currently on dexamethasone and remdesivir. Imaging personally reviewed: Chest x-ray: Moderate bilateral pneumonia Review of systems: Deferred to reduce to the risk of transmission of COVID-19 Past History Past Medical History: No medical history Past Surgical History: No surgical history Social history: lives with family, full code Family history: hypertension Medications and Allergies Allergies Allergy/AdvReac Type Severity Reaction Status Date / Time No Known Allergies Allergy Verified 12/31/20 13:04 Active Meds: Active Medications Acetaminophen (Acetaminophen 325 Mg Tab) 650 mg PO Q4H PRN PRN Reason: Pain, Mild (1-3) Last Admin: 01/02/21 10:08 Dose: 650 mg Documented by: Ascorbic Acid (Ascorbic Acid 500 Mg Tab) 500 mg PO BID [facility] Last Admin: 01/02/21 10:08 Dose: 500 mg Documented by: Dexamethasone (Dexamethasone 4 Mg/Ml Vial) 8 mg IV DAILY [facility] Stop: 01/11/21 10:01 Last Admin: 01/02/21 10:08 Dose: 8 mg Documented by: Famotidine (Famotidine 20 Mg Tab) 20 mg PO BID [facility] Last Admin: 01/02/21 10:08 Dose: 20 mg Documented by: Sodium Chloride (Nacl 0.9% 1000 Ml) 1,000 mls @ 75 mls/hr IV DIRECT [facility] Last Admin: 01/02/21 10:10 Dose: 75 mls/hr Documented by: REMDESIVIR 100 mg/ Sodium (Chloride) 250 mls @ 500 mls/hr IV Q24HR@2100 [facility] Stop: 01/05/21 21:29 Sodium Chloride (Sodium Chloride 0.9% 50 Ml Ivpb) 50 ml IV Q24HR@2100 [facility] Stop: 01/04/21 21:01 Last Admin: 08/30/21 22:30 Dose: 50 ml Documented by: Zinc Sulfate (Zinc Sulfate 220 Mg Cap) 220 mg PO BID FAREED Last Admin: 01/02/21 10:10 Dose: 220 mg Documented by: Physical Examination - Physical Exam Narrative exam: Physical exam deferred to reduce risk of transmission of COVID-19. Please refer to primary team's note. - Constitutional Vitals: Vital Signs Temp Pulse Resp BP Pulse Ox 98.9 F 95 H 27 H 115/71 94 12/31/20 12:54 01/02/21 01:00 01/02/21 01:00 01/02/21 06:00 01/02/21 06:00 Results - Labs CBC & Chem 7: 12/31/20 13:06 01/02/21 05:11 Labs: Abnormal lab results 01/01/21 01/01/21 01/02/21 Range/Units 19:20 Unknown 05:11 Sodium 134 L (137-145) mmol/L Creatinine 0.5 L (0.6-1.2) mg/dL Glucose 103 H 111 H (65-100) mg/dL Calcium 8.3 L 8.3 L (8.4-10.2) mg/dL AST 47 H 45 H (5-40) units/L Albumin 3.7 L 3.7 L (3.9-5) g/dL Coronavirus (PCR) Positive A (Negative) Assessment and Plan Cultures: COVID PCR positive A/P: #Severe COVID-19 pneumonia: Patient presented with a week of symptoms, chest x- ray with diffuse bilateral infiltrates, admission O2 sats 89% on room air. Inflammatory markers elevated #Acute hypoxemic respiratory failure: Likely secondary to COVID-19 infection. Currently on 2L [place] #Morbid obesity Recs: -Dexamethasone 6 mg IV/PO daily for 10 days -Remdesivir 200 mg IV q day x 1 followed by 100 mg IV q day x 4 days -Obtain q48-72h inflammatory markers - ferritin, Ddimer, CRP, LDH -Procalcitonin low, no need for antibiotics -Anticoagulation per hospital protocol -Proning as able Thank you for the consult, we will continue to follow. MD [facility] O: [phone] F: [phone]
[2021-01-02] MEDS: SODIUM CHLORIDE 0.9% 50 ML IVPB IV SCH ×2 (20:18→21:02)
[2021-01-02] MEDS: REMDESIVIR 100 MG in SODIUM CHLORIDE 0.9% 250ML 250 ML IV SCH (21:03)
[2021-01-03] MEDS: guaiFENesin ER 600 MG TAB PO SCH ×3 (02:15→21:30)
[2021-01-03 05:27] LABS: Alanine Aminotransferase 35 units/L (7-56); Albumin 3.5 g/dL (3.9-5); Blood Urea Nitrogen 12 mg/dL (7-17); Calcium 8.1 mg/dL (8.4-10.2); Hemolysis Index 2
[2021-01-03 05:42] LABS: BUN/Creatinine Ratio 24
[2021-01-03] MEDS: BENZONATATE 100 MG CAP PO PRN (06:18)
[2021-01-03] MEDS: dexAMETHasone 4 MG/ML VIAL IV SCH (09:26)
[2021-01-03] MEDS: ZINC SULFATE 220 MG CAP PO SCH ×2 (09:27→22:08)
[2021-01-03] MEDS: FAMOTIDINE 20 MG TAB PO SCH ×2 (09:27→21:30)
[2021-01-03] MEDS: ASCORBIC ACID 500 MG TAB PO SCH ×2 (09:27→21:31)
--- NOTE | 2021-01-03 17:16 | Progress Note ---
Assessment and Plan Cultures: COVID PCR positive A/P: 45 yo F now with: #Severe COVID-19 pneumonia: Patient presented with a week of symptoms, chest x- ray with diffuse bilateral infiltrates, admission O2 sats 89% on room air. Inflammatory markers elevated #Acute hypoxemic respiratory failure: Likely secondary to COVID-19 infection. Currently on 10L [place] #Morbid obesity Recs: -Dexamethasone 6 mg IV/PO daily for 10 days -Remdesivir 200 mg IV q day x 1 followed by 100 mg IV q day x 4 days -CRP low, not on HFNC as such not yet an Actemra candidate -Obtain q48-72h inflammatory markers - ferritin, Ddimer, CRP, LDH -Procalcitonin low, no need for antibiotics -Anticoagulation per hospital protocol -Proning as able Thank you for the consult, we will continue to follow. Alanna Wallis MD [facility] O: [phone] F: [phone] Subjective Date of service: 01/03/21 Interval history: Afebrile, now on 10L [place]. Objective - Exam Narrative Exam: Physical exam deferred to reduce risk of transmission of COVID-19. Please refer to primary team's note. - Constitutional Vitals: Vital Signs Temp Pulse Resp BP Pulse Ox 98.9 F 99 H 19 125/62 96 01/03/21 16:00 01/03/21 16:00 01/03/21 16:00 01/02/21 23:30 01/03/21 16:00 Temperature -Last 24 Hours Temperature 98.9 F Temperature 99.4 F Temperature 98.4 F Temperature 98.4 F Temperature 98.5 F - Labs CBC & Chem 7: 12/31/20 13:06 01/03/21 04:40 Labs: Abnormal lab results 01/03/21 Range/Units 04:40 Creatinine 0.5 L (0.6-1.2) mg/dL Glucose 113 H (65-100) mg/dL Calcium 8.1 L (8.4-10.2) mg/dL AST 45 H (5-40) units/L Albumin 3.5 L (3.9-5) g/dL
--- NOTE | 2021-01-03 19:00 | Progress Note ---
Assessment and Plan Assessment and plan: 45-year-old morbidly obese female patient was admitted through emergency room with fever generalized body pains admitted as PUI Kumar PCR is tested positive, patient is evaluated by ID and is receiving treatment per COVID-19 guidelines. --COVID-19 virus infection; solation precautions contact and droplet Patient is hypoxic requiring 2 to 3 L of nasal cannula oxygen Dexamethasone 8 mg IV daily total 10 doses Remdesivir per protocol total 5 doses Prone positioning Check inflammatory markers Home O2 evaluation Supportive medications zinc, ascorbic acid, vitamin D3 ID evaluation noted and appreciated We will closely monitor the patient and adjust the management as needed Plan of care reviewed with the patient and her nurse --Acute respiratory failure with hypoxia Current Visit: Yes Status: Acute Patient on 4 L nasal cannula oxygen Titrate oxygen to keep the sats level above 92% -- SIRS (systemic inflammatory response syndrome) Current Visit: Yes Status: Acute Inflammatory markers are elevated LDH is 299 CRP is 2.4 --Bilateral pneumonia Current Visit: Yes Status: Acute 1 empiric antibiotics, however procalcitonin is normal level No indication for antibiotics, discontinued Oxygen wean as tolerated, home O2 evaluation, follow cultures --Hypokalemia Current Visit: Yes Status: Acute Supplemented -- Anemia Current Visit: Yes Status: Chronic Anemia work-up. Monitor H&H --Hyponatremia/present on admission Current Visit: Yes Status: Acute Improved continue IV fluids normal saline Closely monitor -- Transaminitis Current Visit: Yes Status: Acute Mild, Possibly secondary to Covid --Morbid obesity; BMI 41.3/obesity hypoventilation Current Visit: Yes Status: Chronic Outpatient sleep study to rule out obstructive sleep apnea Patient needs weight reduction when medically stable Diet modification and exercise as tolerated and weight reduction -- DVT prophylaxis Current Visit: Yes Status: Acute On anticoagulation and GI prophylaxis 01/03: Patient has mild to moderate dyspnea at rest and with conversation. She is currently on 10 L of O2 and FiO2 60%. She is unable to tolerate exertion. The plan is to continue current regimen and wean O2 as tolerated. She will be monitored closely for worsening of hypoxia or respiratory decompensation. Discussed with the patient and the nursing staff. History Interval history: Patient is mild to moderate dyspnea at rest and needing 10 L of O2. She reports painful cough. She does not want to eat food would like to drink Ensure rather. She has some diarrhea. Mentating well. Hospitalist Physical - Constitutional Vitals: Temp Pulse Resp BP Pulse Ox 98.9 F 99 H 19 125/62 95 01/03/21 16:00 01/03/21 16:00 01/03/21 16:00 01/02/21 23:30 01/03/21 17:21 General appearance: Present: mild distress, well-nourished, obese (Morbidly obese) - EENT Eyes: Present: PERRL, EOM intact - Neck Neck: Present: supple. Absent: masses or JVD - Respiratory Respiratory effort: other (Mild to moderate dyspnea at rest and conversation) Respiratory: bilateral: diminished - Cardiovascular Rhythm: regular - Extremities Extremities: No edema Peripheral Pulses: within normal limits - Abdominal General gastrointestinal: soft, non-tender, normal bowel sounds - Integumentary Integumentary: Absent: rash - Psychiatric Psychiatric: appropriate mood/affect - Neurologic Neurologic: moves all extremities Results - Labs CBC & Chem 7: 12/31/20 13:06 01/04/21 05:09 Labs: Laboratory Last Values WBC 3.7 K/mm3 (4.5-11.0) L 12/31/20 13:06 RBC 4.78 M/mm3 (3.65-5.03) 12/31/20 13:06 Hgb 8.8 gm/dl (10.1-14.3) L 12/31/20 13:06 Hct 29.1 % (30.3-42.9) L 12/31/20 13:06 MCV 61 fl (79-97) L 12/31/20 13:06 MCH 18 pg (28-32) L 12/31/20 13:06 MCHC 30 % (30-34) 12/31/20 13:06 RDW 19.3 % (13.2-15.2) H 12/31/20 13:06 Plt Count 334 K/mm3 (140-440) 12/31/20 13:06 Lymph % (Auto) 17.8 % (13.4-35.0) 12/31/20 13:06 [place] % (Auto) 9.9 % (0.0-7.3) H 12/31/20 13:06 Eos % (Auto) 0.0 % (0.0-4.3) 12/31/20 13:06 Baso % (Auto) 0.5 % (0.0-1.8) 12/31/20 13:06 Lymph # (Auto) 0.7 K/mm3 (1.2-5.4) L 12/31/20 13:06 [place] # (Auto) 0.4 K/mm3 (0.0-0.8) 12/31/20 13:06 Eos # (Auto) 0.0 K/mm3 (0.0-0.4) 12/31/20 13:06 Baso # (Auto) 0.0 K/mm3 (0.0-0.1) 12/31/20 13:06 Seg Neutrophils % 71.8 % (40.0-70.0) H 12/31/20 13:06 Seg Neutrophils # 2.6 K/mm3 (1.8-7.7) 12/31/20 13:06 PT 13.4 Sec. (12.2-14.9) 12/31/20 13:06 INR 0.96 (0.87-1.13) 12/31/20 13:06 APTT 36.1 Sec. (24.2-36.6) 12/31/20 13:06 D-Dimer 141.20 ng/mlDDU (0-234) 12/31/20 13:06 Sodium 139 mmol/L (137-145) 01/03/21 04:40 Potassium 4.2 mmol/L (3.6-5.0) 01/03/21 04:40 Chloride 102.9 mmol/L (98-107) 01/03/21 04:40 Carbon Dioxide 23 mmol/L (22-30) 01/03/21 04:40 Anion Gap 17 mmol/L 01/03/21 04:40 BUN 12 mg/dL (7-17) 01/03/21 04:40 Creatinine 0.5 mg/dL (0.6-1.2) L 01/03/21 04:40 Estimated GFR > 60 ml/min 01/03/21 04:40 BUN/Creatinine Ratio 24 % 01/03/21 04:40 Glucose 113 mg/dL (65-100) H 01/03/21 04:40 Calcium 8.1 mg/dL (8.4-10.2) L 01/03/21 04:40 Magnesium 2.10 mg/dL (1.7-2.3) 12/31/20 13:06 Ferritin 60.6 ng/mL (10.0-200.0) 12/31/20 13:06 Total Bilirubin 0.30 mg/dL (0.1-1.2) 01/03/21 04:40 AST 45 units/L (5-40) H 01/03/21 04:40 ALT 35 units/L (7-56) 01/03/21 04:40 Alkaline Phosphatase 38 units/L (35-129) 01/03/21 04:40 Lactate Dehydrogenase 299 units/L (91-180) H 12/31/20 13:06 C-Reactive Protein 2.40 mg/dL (0.00-1.30) H 12/31/20 13:06 Total Protein 6.9 g/dL (6.3-8.2) 01/03/21 04:40 Albumin 3.5 g/dL (3.9-5) L 01/03/21 04:40 Albumin/Globulin Ratio 1.0 % 01/03/21 04:40 Procalcitonin < 0.05 ng/mL (<0.15) 12/31/20 13:06 HCG, Quant < 0.500 mIU/mL (0-4) 12/31/20 13:06 Coronavirus (PCR) Positive (Negative) A 01/01/21 Unknown Microbiology: Microbiology 12/31/20 15:25 Peripheral/Venous Blood Culture - Preliminary NO GROWTH AFTER 72 HOURS 12/31/20 15:25 Peripheral/Venous Blood Culture - Preliminary NO GROWTH AFTER 72 HOURS [place]/IV: Voiding Method External Female Catheter Active Medications - Current Medications Current Medications: Generic Name Dose Route Start Last Admin Trade Name Freq PRN Reason Stop Dose Admin Acetaminophen 650 mg 01/01/21 09:00 01/02/21 10:08 Acetaminophen 325 Mg Tab PO 650 mg Q4H PRN Administration Pain, Mild (1-3) Ascorbic Acid 500 mg 01/01/21 10:00 01/03/21 09:27 Ascorbic Acid 500 Mg Tab PO 500 mg BID FAREED Administration Benzonatate 100 mg 01/03/21 01:09 01/03/21 06:18 Benzonatate 100 Mg Cap PO 100 mg Q8HR PRN Administration Cough Dexamethasone 8 mg 01/02/21 10:00 01/03/21 09:26 Dexamethasone 4 Mg/Ml Vial IV 01/11/21 10:01 8 mg DAILY FAREED Administration Famotidine 20 mg 01/01/21 10:00 01/03/21 09:27 Famotidine 20 Mg Tab PO 20 mg BID FAREED Administration Guaifenesin 600 mg 01/03/21 02:00 01/03/21 09:27 Guaifenesin Er 600 Mg Tab PO 600 mg BID FAREED Administration Sodium Chloride 1,000 mls @ 75 mls/hr 01/01/21 09:00 01/02/21 10:10 Nacl 0.9% 1000 Ml IV 75 mls/hr DIRECT FAREED Administration REMDESIVIR 100 mg/ Sodium 250 mls @ 500 mls/hr 01/02/21 21:00 01/02/21 21:03 Chloride IV 01/05/21 21:29 500 mls/hr Q24HR@2100 FAREED Administration Sodium Chloride 50 ml 01/01/21 19:30 01/02/21 21:02 Sodium Chloride 0.9% 50 Ml Ivpb IV 01/04/21 21:01 50 ml Q24HR@2100 FAREED Administration Zinc Sulfate 220 mg 01/01/21 10:00 01/03/21 09:27 Zinc Sulfate 220 Mg Cap PO 220 mg BID FAREED Administration
[2021-01-03] MEDS: REMDESIVIR 100 MG in SODIUM CHLORIDE 0.9% 250ML 250 ML IV SCH (21:29)
[2021-01-03] MEDS: SODIUM CHLORIDE 0.9% 50 ML IVPB IV SCH (21:29)
[2021-01-03] MEDS: SODIUM CHLORIDE 0.9% 1000 ML 1,000 ML IV SCH (22:09)
[2021-01-04] MEDS: BENZONATATE 100 MG CAP PO PRN ×2 (01:58→22:30)
[2021-01-04 06:21] LABS: Alanine Aminotransferase 30 units/L (7-56); Albumin 3.4 g/dL (3.9-5); Blood Urea Nitrogen 15 mg/dL (7-17); Calcium 8.6 mg/dL (8.4-10.2); Hemolysis Index 0
[2021-01-04 06:30] LABS: BUN/Creatinine Ratio 30
--- NOTE | 2021-01-04 08:52 | Electrocardiograph Report ---
[facility] Test Date: 2021-01-01 Test Time: 15:59:11 Pat Name: JOSEPH GOMEZ Department: Room: A267 Gender: F Environmental Lawyer: CODY : 1975 Requested By: KIARRA STEVE Order Number: [id number] Reading MD: Mata Birch Measurements Intervals [place] Rate: 100 P: 69 [place]: 143 QRS: 20 QRSD: 86 T: 20 QT: 331 QTc: 427 Interpretive Statements Sinus tachycardia NSSTTW'S BORDERLINE LVH Compared to ECG 12/31/2020 13:27:02 Sinus rhythm no longer present Electronically Signed On 01-04-2021 8:52:18 EDT by Mata Birch
[2021-01-04] MEDS: dexAMETHasone 4 MG/ML VIAL IV SCH (09:15)
[2021-01-04] MEDS: guaiFENesin ER 600 MG TAB PO SCH ×2 (09:16→22:28)
[2021-01-04] MEDS: ZINC SULFATE 220 MG CAP PO SCH ×2 (09:16→22:28)
[2021-01-04] MEDS: FAMOTIDINE 20 MG TAB PO SCH ×2 (09:16→22:28)
[2021-01-04] MEDS: ASCORBIC ACID 500 MG TAB PO SCH ×2 (09:16→22:28)
--- NOTE | 2021-01-04 13:59 | Progress Note ---
Assessment and Plan Cultures: COVID PCR positive A/P: 45 yo F now with: #Severe COVID-19 pneumonia: Patient presented with a week of symptoms, chest x- ray with diffuse bilateral infiltrates, admission O2 sats 89% on room air. Inflammatory markers elevated #Acute hypoxemic respiratory failure: Likely secondary to COVID-19 infection. Currently on 15L [place] #Morbid obesity Recs: -Dexamethasone 6 mg IV/PO daily for 10 days -Remdesivir 200 mg IV q day x 1 followed by 100 mg IV q day x 4 days -CRP low, not on HFNC as such not yet an Actemra candidate -Obtain q48-72h inflammatory markers - ferritin, Ddimer, CRP, LDH -Procalcitonin low, no need for antibiotics -Anticoagulation per hospital protocol -Proning as able Thank you for the consult, we will continue to follow. Alanna Wallis MD [facility] O: [phone] F: [phone] Subjective Date of service: 01/04/21 Interval history: Afebrile, no acute change. Currently on 15 L [facility] Objective - Exam Narrative Exam: Physical exam deferred to reduce risk of transmission of COVID-19. Please refer to primary team's note. - Constitutional Vitals: Vital Signs Temp Pulse Resp BP Pulse Ox 98.6 F 96 H 24 128/73 92 01/04/21 04:00 01/04/21 13:00 01/04/21 13:00 01/04/21 13:00 01/04/21 13:00 Temperature -Last 24 Hours Temperature 98.6 F Temperature 98.3 F Temperature 98.2 F Temperature 98.9 F - Labs CBC & Chem 7: 12/31/20 13:06 01/04/21 05:09 Labs: Abnormal lab results 01/04/21 Range/Units 05:09 Creatinine 0.5 L (0.6-1.2) mg/dL Glucose 114 H (65-100) mg/dL Albumin 3.4 L (3.9-5) g/dL
--- NOTE | 2021-01-04 19:22 | Progress Note ---
Assessment and Plan Assessment and plan: 45-year-old morbidly obese female patient was admitted through emergency room with fever generalized body pains admitted as PUI Kumar PCR is tested positive, patient is evaluated by ID and is receiving treatment per COVID-19 guidelines. --COVID-19 virus infection; solation precautions contact and droplet Patient is hypoxic requiring 2 to 3 L of nasal cannula oxygen Dexamethasone 8 mg IV daily total 10 doses Remdesivir per protocol total 5 doses Prone positioning Check inflammatory markers Home O2 evaluation Supportive medications zinc, ascorbic acid, vitamin D3 ID evaluation noted and appreciated We will closely monitor the patient and adjust the management as needed Plan of care reviewed with the patient and her nurse --Acute respiratory failure with hypoxia Current Visit: Yes Status: Acute Patient on 4 L nasal cannula oxygen Titrate oxygen to keep the sats level above 92% -- SIRS (systemic inflammatory response syndrome) Current Visit: Yes Status: Acute Inflammatory markers are elevated LDH is 299 CRP is 2.4 --Bilateral pneumonia Current Visit: Yes Status: Acute 1 empiric antibiotics, however procalcitonin is normal level No indication for antibiotics, discontinued Oxygen wean as tolerated, home O2 evaluation, follow cultures --Hypokalemia Current Visit: Yes Status: Acute Supplemented -- Anemia Current Visit: Yes Status: Chronic Anemia work-up. Monitor H&H --Hyponatremia/present on admission Current Visit: Yes Status: Acute Improved continue IV fluids normal saline Closely monitor -- Transaminitis Current Visit: Yes Status: Acute Mild, Possibly secondary to Covid --Morbid obesity; BMI 41.3/obesity hypoventilation Current Visit: Yes Status: Chronic Outpatient sleep study to rule out obstructive sleep apnea Patient needs weight reduction when medically stable Diet modification and exercise as tolerated and weight reduction -- DVT prophylaxis Current Visit: Yes Status: Acute On anticoagulation and GI prophylaxis 01/03: Patient has mild to moderate dyspnea at rest and with conversation. She is currently on 10 L of O2 and FiO2 60%. She is unable to tolerate exertion. The plan is to continue current regimen and wean O2 as tolerated. She will be monitored closely for worsening of hypoxia or respiratory decompensation. Discussed with the patient and the nursing staff. 01/14: Hypoxia slightly worse, O2 increased from 10 to 15 L today. She has some productive cough which is painful. She is unable to tolerate exertion. She continued have some nausea and diarrhea. However she is able to tolerate Ensure well. Hemodynamically otherwise stable. Mentating well. The plan is to continue current regimen and wean O2 as tolerated. We will continue to monitor closely since hypoxia is getting worse. Pulmonary is following. Discussed with the patient and the nursing staff. History Interval history: Hypoxia slightly worse, O2 increased from 10 to 15 L today. She has some productive cough which is painful. She is unable to tolerate exertion. She continued have some nausea and diarrhea. However she is able to tolerate Ensure well. Hemodynamically otherwise stable. Mentating well. Hospitalist Physical - Constitutional Vitals: Temp Pulse Resp BP Pulse Ox 96.3 F L 75 38 H 121/70 97 01/04/21 16:00 01/04/21 17:30 01/04/21 17:30 01/04/21 17:30 01/04/21 17:30 General appearance: Present: mild distress, well-nourished, obese (Morbidly obese) - EENT Eyes: Present: PERRL, EOM intact - Neck Neck: Present: supple. Absent: masses or JVD - Respiratory Respiratory effort: other (Mild to moderate respiratory distress at rest) Respiratory: bilateral: diminished - Cardiovascular Rhythm: regular - Extremities Extremities: pulses intact, No edema Peripheral Pulses: within normal limits - Abdominal General gastrointestinal: soft, non-tender, normal bowel sounds - Integumentary Integumentary: Absent: rash - Psychiatric Psychiatric: appropriate mood/affect - Neurologic Neurologic: moves all extremities Results - Labs CBC & Chem 7: 12/31/20 13:06 01/04/21 05:09 Labs: Laboratory Last Values WBC 3.7 K/mm3 (4.5-11.0) L 12/31/20 13:06 RBC 4.78 M/mm3 (3.65-5.03) 12/31/20 13:06 Hgb 8.8 gm/dl (10.1-14.3) L 12/31/20 13:06 Hct 29.1 % (30.3-42.9) L 12/31/20 13:06 MCV 61 fl (79-97) L 12/31/20 13:06 MCH 18 pg (28-32) L 12/31/20 13:06 MCHC 30 % (30-34) 12/31/20 13:06 RDW 19.3 % (13.2-15.2) H 12/31/20 13:06 Plt Count 334 K/mm3 (140-440) 12/31/20 13:06 Lymph % (Auto) 17.8 % (13.4-35.0) 12/31/20 13:06 [place] % (Auto) 9.9 % (0.0-7.3) H 12/31/20 13:06 Eos % (Auto) 0.0 % (0.0-4.3) 12/31/20 13:06 Baso % (Auto) 0.5 % (0.0-1.8) 12/31/20 13:06 Lymph # (Auto) 0.7 K/mm3 (1.2-5.4) L 12/31/20 13:06 [place] # (Auto) 0.4 K/mm3 (0.0-0.8) 12/31/20 13:06 Eos # (Auto) 0.0 K/mm3 (0.0-0.4) 12/31/20 13:06 Baso # (Auto) 0.0 K/mm3 (0.0-0.1) 12/31/20 13:06 Seg Neutrophils % 71.8 % (40.0-70.0) H 12/31/20 13:06 Seg Neutrophils # 2.6 K/mm3 (1.8-7.7) 12/31/20 13:06 PT 13.4 Sec. (12.2-14.9) 12/31/20 13:06 INR 0.96 (0.87-1.13) 12/31/20 13:06 APTT 36.1 Sec. (24.2-36.6) 12/31/20 13:06 D-Dimer 141.20 ng/mlDDU (0-234) 12/31/20 13:06 Sodium 138 mmol/L (137-145) 01/04/21 05:09 Potassium 4.5 mmol/L (3.6-5.0) 01/04/21 05:09 Chloride 104.5 mmol/L (98-107) 01/04/21 05:09 Carbon Dioxide 24 mmol/L (22-30) 01/04/21 05:09 Anion Gap 14 mmol/L 01/04/21 05:09 BUN 15 mg/dL (7-17) 01/04/21 05:09 Creatinine 0.5 mg/dL (0.6-1.2) L 01/04/21 05:09 Estimated GFR > 60 ml/min 01/04/21 05:09 BUN/Creatinine Ratio 30 % 01/04/21 05:09 Glucose 114 mg/dL (65-100) H 01/04/21 05:09 Calcium 8.6 mg/dL (8.4-10.2) 01/04/21 05:09 Magnesium 2.10 mg/dL (1.7-2.3) 12/31/20 13:06 Ferritin 60.6 ng/mL (10.0-200.0) 12/31/20 13:06 Total Bilirubin 0.30 mg/dL (0.1-1.2) 01/04/21 05:09 AST 32 units/L (5-40) 01/04/21 05:09 ALT 30 units/L (7-56) 01/04/21 05:09 Alkaline Phosphatase 39 units/L (35-129) 01/04/21 05:09 Lactate Dehydrogenase 299 units/L (91-180) H 12/31/20 13:06 C-Reactive Protein 2.40 mg/dL (0.00-1.30) H 12/31/20 13:06 Total Protein 6.9 g/dL (6.3-8.2) 01/04/21 05:09 Albumin 3.4 g/dL (3.9-5) L 01/04/21 05:09 Albumin/Globulin Ratio 1.0 % 01/04/21 05:09 Procalcitonin < 0.05 ng/mL (<0.15) 12/31/20 13:06 HCG, Quant < 0.500 mIU/mL (0-4) 12/31/20 13:06 Coronavirus (PCR) Positive (Negative) A 01/01/21 Unknown Microbiology: Microbiology 12/31/20 15:25 Peripheral/Venous Blood Culture - Preliminary NO GROWTH AFTER 4 DAYS 12/31/20 15:25 Peripheral/Venous Blood Culture - Preliminary NO GROWTH AFTER 4 DAYS Alegria/IV: Voiding Method External Female Catheter Active Medications - Current Medications Current Medications: Generic Name Dose Route Start Last Admin Trade Name Freq PRN Reason Stop Dose Admin Acetaminophen 650 mg 01/01/21 09:00 01/02/21 10:08 Acetaminophen 325 Mg Tab PO 650 mg Q4H PRN Administration Pain, Mild (1-3) Ascorbic Acid 500 mg 01/01/21 10:00 01/04/21 09:16 Ascorbic Acid 500 Mg Tab PO 500 mg BID FAREED Administration Benzonatate 100 mg 01/03/21 01:09 01/04/21 01:58 Benzonatate 100 Mg Cap PO 100 mg Q8HR PRN Administration Cough Dexamethasone 8 mg 01/02/21 10:00 01/04/21 09:15 Dexamethasone 4 Mg/Ml Vial IV 01/11/21 10:01 8 mg DAILY FAREED Administration Famotidine 20 mg 01/01/21 10:00 01/04/21 09:16 Famotidine 20 Mg Tab PO 20 mg BID FAREED Administration Guaifenesin 600 mg 01/03/21 02:00 01/04/21 09:16 Guaifenesin Er 600 Mg Tab PO 600 mg BID FAREED Administration Sodium Chloride 1,000 mls @ 75 mls/hr 01/01/21 09:00 01/03/21 22:09 Nacl 0.9% 1000 Ml IV 75 mls/hr DIRECT FAREED Administration REMDESIVIR 100 mg/ Sodium 250 mls @ 500 mls/hr 01/02/21 21:00 01/03/21 21:29 Chloride IV 01/05/21 21:29 500 mls/hr Q24HR@2100 FAREED Administration Sodium Chloride 50 ml 01/01/21 19:30 01/03/21 21:29 Sodium Chloride 0.9% 50 Ml Ivpb IV 01/04/21 21:01 50 ml Q24HR@2100 FAREED Administration Zinc Sulfate 220 mg 01/01/21 10:00 01/04/21 09:16 Zinc Sulfate 220 Mg Cap PO 220 mg BID FAREED Administration Nutrition/Malnutrition Assess - Dietary Evaluation Nutrition/Malnutrition Findings: Nutrition Notes Start: 01/04/21 10:49 Freq: Status: Active Protocol: Document 01/04/21 10:49 KATELYNN (Rec: 01/04/21 10:52 KATELYNN [id number]) Nutrition Notes Need for Assessment generated from: MD Order Initial or Follow up Brief Note Other Pertinent Diagnosis SIRS, Pneu, COVID-19, transaminitis, anemia Current Diet regular Subjective/Other Information MD order for ONS TID. Pt did not answer phone. Nutrition Intervention Follow-Up By: 01/05/21 Additional Comments F/u: intakes and assessment
[2021-01-04] MEDS: REMDESIVIR 100 MG in SODIUM CHLORIDE 0.9% 250ML 250 ML IV SCH (22:28)
[2021-01-04] MEDS: ACETAMINOPHEN 325 MG TAB PO PRN (22:28)
[2021-01-04] MEDS: SODIUM CHLORIDE 0.9% 50 ML IVPB IV SCH (22:29)
[2021-01-04] MEDS: SODIUM CHLORIDE 0.9% 1000 ML 1,000 ML IV SCH (23:03)
[2021-01-05] MEDS: ACETAMINOPHEN 325 MG TAB PO PRN ×3 (04:30→22:18)
[2021-01-05] MEDS: ASCORBIC ACID 500 MG TAB PO SCH ×2 (09:11→22:19)
[2021-01-05] MEDS: FAMOTIDINE 20 MG TAB PO SCH ×2 (09:12→22:19)
[2021-01-05] MEDS: guaiFENesin ER 600 MG TAB PO SCH ×2 (09:12→22:17)
[2021-01-05] MEDS: BENZONATATE 100 MG CAP PO PRN (09:12)
[2021-01-05] MEDS: ZINC SULFATE 220 MG CAP PO SCH ×2 (09:12→22:19)
[2021-01-05] MEDS: dexAMETHasone 4 MG/ML VIAL IV SCH (11:27)
--- NOTE | 2021-01-05 13:57 | Progress Note ---
Subjective Date of service: 01/05/21 Interval history: Bile cultures remain negative. On 15 L salter Objective - Constitutional Vitals: Vital Signs Temp Pulse Resp BP Pulse Ox 98.5 F 75 31 H 134/71 96 01/05/21 08:00 01/05/21 13:00 01/05/21 13:00 01/05/21 13:00 01/05/21 13:00 Temperature -Last 24 Hours Temperature 98.5 F Temperature 98.3 F Temperature 97.9 F Temperature 99.0 F Temperature 96.3 F - Labs CBC & Chem 7: 12/31/20 13:06 01/04/21 05:09
--- NOTE | 2021-01-05 19:50 | Progress Note ---
Assessment and Plan Assessment and plan: 45-year-old morbidly obese female patient was admitted through emergency room with fever generalized body pains admitted as PUI Kumar PCR is tested positive, patient is evaluated by ID and is receiving tr eatment per COVID-19 guidelines. --COVID-19 virus infection; solation precautions contact and droplet Patient is hypoxic requiring 2 to 3 L of nasal cannula oxygen Dexamethasone 8 mg IV daily total 10 doses Remdesivir per protocol total 5 doses Prone positioning Check inflammatory markers Home O2 evaluation Supportive medications zinc, ascorbic acid, vitamin D3 ID evaluation noted and appreciated We will closely monitor the patient and adjust the management as needed Plan of care reviewed with the patient and her nurse --Acute respiratory failure with hypoxia Current Visit: Yes Status: Acute Patient on 4 L nasal cannula oxygen Titrate oxygen to keep the sats level above 92% -- SIRS (systemic inflammatory response syndrome) Current Visit: Yes Status: Acute Inflammatory markers are elevated LDH is 299 CRP is 2.4 --Bilateral pneumonia Current Visit: Yes Status: Acute 1 empiric antibiotics, however procalcitonin is normal level No indication for antibiotics, discontinued Oxygen wean as tolerated, home O2 evaluation, follow cultures --Hypokalemia Current Visit: Yes Status: Acute Supplemented -- Anemia Current Visit: Yes Status: Chronic Anemia work-up. Monitor H&H --Hyponatremia/present on admission Current Visit: Yes Status: Acute Improved continue IV fluids normal saline Closely monitor -- Transaminitis Current Visit: Yes Status: Acute Mild, Possibly secondary to Covid --Morbid obesity; BMI 41.3/obesity hypoventilation Current Visit: Yes Status: Chronic Outpatient sleep study to rule out obstructive sleep apnea Patient needs weight reduction when medically stable Diet modification and exercise as tolerated and weight reduction -- DVT prophylaxis Current Visit: Yes Status: Acute On anticoagulation and GI prophylaxis 01/03: Patient has mild to moderate dyspnea at rest and with conversation. She is currently on oxygen O2 and FiO2 60%. She is unable to tolerate exertion. The plan is to continue current regimen and wean O2 as tolerated. She will be monitored closely for worsening of hypoxia or respiratory decompensation. Discussed with the patient and the nursing staff. 01/04: Hypoxia slightly worse, O2 increased from 10 to 15 L today. She has some productive cough which is painful. She is unable to tolerate exertion. She continued have some nausea and diarrhea. However she is able to tolerate Ensure well. Hemodynamically otherwise stable. Mentating well. The plan is to continue current regimen and wean O2 as tolerated. We will continue to monitor closely since hypoxia is getting worse. Pulmonary is following. Discussed with the patient and the nursing staff. 01/05/2021; patient continues to require 15 L oxygen In mild distress, Continue current management wean oxygen as tolerated History Interval history: I have seen and examined the patient at the bedside Patient has no new complaints vital signs stable Hospitalist Physical - Constitutional Vitals: Temp Pulse Resp BP Pulse Ox 97.9 F 86 30 H 118/70 95 01/05/21 16:00 01/05/21 17:00 01/05/21 17:00 01/05/21 17:00 01/05/21 17:00 General appearance: Present: mild distress, well-nourished, obese (Morbidly obese) - EENT Eyes: Present: PERRL, EOM intact - Neck Neck: Present: supple, normal ROM - Respiratory Respiratory effort: normal Respiratory: bilateral: diminished, negative: rales, rhonchi, wheezing - Cardiovascular Rhythm: regular Heart Sounds: Present: S1 & S2 - Extremities Extremities: no ischemia, No edema - Abdominal General gastrointestinal: soft, non-tender, non-distended, normal bowel sounds - Integumentary Integumentary: Present: clear, warm - Psychiatric Psychiatric: appropriate mood/affect, cooperative - Neurologic Neurologic: CNII-XII intact, moves all extremities Results - Labs CBC & Chem 7: 12/31/20 13:06 01/04/21 05:09 Labs: Laboratory Last Values WBC 3.7 K/mm3 (4.5-11.0) L 12/31/20 13:06 RBC 4.78 M/mm3 (3.65-5.03) 12/31/20 13:06 Hgb 8.8 gm/dl (10.1-14.3) L 12/31/20 13:06 Hct 29.1 % (30.3-42.9) L 12/31/20 13:06 MCV 61 fl (79-97) L 12/31/20 13:06 MCH 18 pg (28-32) L 12/31/20 13:06 MCHC 30 % (30-34) 12/31/20 13:06 RDW 19.3 % (13.2-15.2) H 12/31/20 13:06 Plt Count 334 K/mm3 (140-440) 12/31/20 13:06 Lymph % (Auto) 17.8 % (13.4-35.0) 12/31/20 13:06 [place] % (Auto) 9.9 % (0.0-7.3) H 12/31/20 13:06 Eos % (Auto) 0.0 % (0.0-4.3) 12/31/20 13:06 Baso % (Auto) 0.5 % (0.0-1.8) 12/31/20 13:06 Lymph # (Auto) 0.7 K/mm3 (1.2-5.4) L 12/31/20 13:06 [place] # (Auto) 0.4 K/mm3 (0.0-0.8) 12/31/20 13:06 Eos # (Auto) 0.0 K/mm3 (0.0-0.4) 12/31/20 13:06 Baso # (Auto) 0.0 K/mm3 (0.0-0.1) 12/31/20 13:06 Seg Neutrophils % 71.8 % (40.0-70.0) H 12/31/20 13:06 Seg Neutrophils # 2.6 K/mm3 (1.8-7.7) 12/31/20 13:06 PT 13.4 Sec. (12.2-14.9) 12/31/20 13:06 INR 0.96 (0.87-1.13) 12/31/20 13:06 APTT 36.1 Sec. (24.2-36.6) 12/31/20 13:06 D-Dimer 141.20 ng/mlDDU (0-234) 12/31/20 13:06 Sodium 138 mmol/L (137-145) 01/04/21 05:09 Potassium 4.5 mmol/L (3.6-5.0) 01/04/21 05:09 Chloride 104.5 mmol/L (98-107) 01/04/21 05:09 Carbon Dioxide 24 mmol/L (22-30) 01/04/21 05:09 Anion Gap 14 mmol/L 01/04/21 05:09 BUN 15 mg/dL (7-17) 01/04/21 05:09 Creatinine 0.5 mg/dL (0.6-1.2) L 01/04/21 05:09 Estimated GFR > 60 ml/min 01/04/21 05:09 BUN/Creatinine Ratio 30 % 01/04/21 05:09 Glucose 114 mg/dL (65-100) H 01/04/21 05:09 Calcium 8.6 mg/dL (8.4-10.2) 01/04/21 05:09 Magnesium 2.10 mg/dL (1.7-2.3) 12/31/20 13:06 Ferritin 60.6 ng/mL (10.0-200.0) 12/31/20 13:06 Total Bilirubin 0.30 mg/dL (0.1-1.2) 01/04/21 05:09 AST 32 units/L (5-40) 01/04/21 05:09 ALT 30 units/L (7-56) 01/04/21 05:09 Alkaline Phosphatase 39 units/L (35-129) 01/04/21 05:09 Lactate Dehydrogenase 299 units/L (91-180) H 12/31/20 13:06 C-Reactive Protein 2.40 mg/dL (0.00-1.30) H 12/31/20 13:06 Total Protein 6.9 g/dL (6.3-8.2) 01/04/21 05:09 Albumin 3.4 g/dL (3.9-5) L 01/04/21 05:09 Albumin/Globulin Ratio 1.0 % 01/04/21 05:09 Procalcitonin < 0.05 ng/mL (<0.15) 12/31/20 13:06 HCG, Quant < 0.500 mIU/mL (0-4) 12/31/20 13:06 Coronavirus (PCR) Positive (Negative) A 01/01/21 Unknown Microbiology: Microbiology 12/31/20 15:25 Peripheral/Venous Blood Culture - Final NO GROWTH AFTER 5 DAYS 12/31/20 15:25 Peripheral/Venous Blood Culture - Final NO GROWTH AFTER 5 DAYS Alegria/IV: Voiding Method External Female Catheter Active Medications - Current Medications Current Medications: Generic Name Dose Route Start Last Admin Trade Name Freq PRN Reason Stop Dose Admin Acetaminophen 650 mg 01/01/21 09:00 01/05/21 16:52 Acetaminophen 325 Mg Tab PO 650 mg Q4H PRN Administration Pain, Mild (1-3) Ascorbic Acid 500 mg 01/01/21 10:00 01/05/21 09:11 Ascorbic Acid 500 Mg Tab PO 500 mg BID FAREED Administration Benzonatate 100 mg 01/03/21 01:09 01/05/21 09:12 Benzonatate 100 Mg Cap PO 100 mg Q8HR PRN Administration Cough Dexamethasone 8 mg 01/02/21 10:00 01/05/21 11:27 Dexamethasone 4 Mg/Ml Vial IV 01/11/21 10:01 8 mg DAILY FAREED Administration Famotidine 20 mg 01/01/21 10:00 01/05/21 09:12 Famotidine 20 Mg Tab PO 20 mg BID FAREED Administration Guaifenesin 600 mg 01/03/21 02:00 01/05/21 09:12 Guaifenesin Er 600 Mg Tab PO 600 mg BID FAREED Administration REMDESIVIR 100 mg/ Sodium 250 mls @ 500 mls/hr 01/02/21 21:00 01/04/21 22:28 Chloride IV 01/05/21 21:29 500 mls/hr Q24HR@2100 FAREED Administration Zinc Sulfate 220 mg 01/01/21 10:00 01/05/21 09:12 Zinc Sulfate 220 Mg Cap PO 220 mg BID FAREED Administration Nutrition/Malnutrition Assess - Dietary Evaluation Nutrition/Malnutrition Findings: Nutrition Notes Start: 01/04/21 10:49 Freq: Status: Active Protocol: Document 01/05/21 09:43 (Rec: 01/05/21 09:53 [id number]) Nutrition Notes Initial or Follow up Assessment Current Diagnosis Respiratory Failure Other Pertinent Diagnosis SIRS, Pneu, COVID-19, transaminitis, anemia Current Diet regular Labs/Tests Reviewed Pertinent Medications NS at 75 ml/hr Zinc Vitamin C Height 5 ft 6 in Weight 92.1 kg [place] Body Weight (kg) 59.09 BMI 32.8 Weight Status Obese Subjective/Other Information Pt not answering phone. Per chart, she is drinking ONS and having some nausea and diarrhea. RN reports pt drinking at least 3 ONS daily but not eating meals. Her family brought 2.5 cases of Ensure for pt. Percent of energy/protein needs met: 71%/98% Burn Absent Trauma Absent GI Symptoms Nausea,Diarrhea Minimum of two criteria No #1 Nutrition Diagnosis Inadequate oral intake Etiology COVID-19 As Evidenced by Signs and Symptoms pt depending on ONS to meet needs Is patient on ventilator? No Is Patient Ambulatory and/or Out of Bed Yes REE-([facility]-ambulatory/OOB) [ 2063.075 NUTR.[id number]] Kcal/Kg value to use for calculation 16 Approximate Energy Requirements Using 1474 kcal/Kg Calculation Used for Recommendations Kcal/kg Additional Notes Protein: (0.8-1g/kg AdjBW: 76kg) 61-76g Fluid: 1 ml/kcal Nutrition Intervention Change Diet Order: Continue Add Supplement/Snack (indicate name/kcal Ensure Enlive TID /protein ) Provides kCal: 1,050 Provides Protein (gm) 60 Goal #1 Meet at least 75% of protein and kcal needs via PO and ONS intakes Anticipated Discharge Needs: Regular Follow-Up By: 01/09/21 Additional Comments F/u: intakes and ONS tolerance
[2021-01-05] MEDS ORDERED: ALPRAZolam 0.25 MG TAB PO ONE (21:00)
[2021-01-05] MEDS ORDERED: SODIUM CHLORIDE 0.9% 50 ML IV ONE (21:30)
[2021-01-05] MEDS: REMDESIVIR 100 MG in SODIUM CHLORIDE 0.9% 250ML 250 ML IV SCH (22:12)
[2021-01-06] MEDS: BENZONATATE 100 MG CAP PO PRN ×2 (06:20→22:54)
--- NOTE | 2021-01-06 09:20 | Progress Note ---
Assessment and Plan Assessment and plan: 45-year-old morbidly obese female patient was admitted through emergency room with fever generalized body pains admitted as PUI Kumar PCR is tested positive, patient is evaluated by ID and is receiving tr eatment per COVID-19 guidelines. Patient remains on 15 L of nasal cannula supplemental oxygen --COVID-19 virus infection; solation precautions contact and droplet Patient is hypoxic requiring 2 to 3 L of nasal cannula oxygen Dexamethasone 8 mg IV daily total 10 doses Remdesivir per protocol total 5 doses Prone positioning Check inflammatory markers Home O2 evaluation Supportive medications zinc, ascorbic acid, vitamin D3 ID evaluation noted and appreciated We will closely monitor the patient and adjust the management as needed Plan of care reviewed with the patient and her nurse --Acute respiratory failure with hypoxia Current Visit: Yes Status: Acute Patient on 4 L nasal cannula oxygen Titrate oxygen to keep the sats level above 92% -- SIRS (systemic inflammatory response syndrome) Current Visit: Yes Status: Acute Inflammatory markers are elevated LDH is 299 CRP is 2.4 --Bilateral pneumonia Current Visit: Yes Status: Acute 1 empiric antibiotics, however procalcitonin is normal level No indication for antibiotics, discontinued Oxygen wean as tolerated, home O2 evaluation, follow cultures --Hypokalemia Current Visit: Yes Status: Acute Supplemented -- Anemia Current Visit: Yes Status: Chronic Anemia work-up. Monitor H&H --Hyponatremia/present on admission Current Visit: Yes Status: Acute Improved continue IV fluids normal saline Closely monitor -- Transaminitis Current Visit: Yes Status: Acute Mild, Possibly secondary to Covid --Morbid obesity; BMI 41.3/obesity hypoventilation Current Visit: Yes Status: Chronic Outpatient sleep study to rule out obstructive sleep apnea Patient needs weight reduction when medically stable Diet modification and exercise as tolerated and weight reduction -- DVT prophylaxis Current Visit: Yes Status: Acute On anticoagulation and GI prophylaxis 01/03: Patient has mild to moderate dyspnea at rest and with conversation. She is currently on oxygen O2 and FiO2 60%. She is unable to tolerate exertion. The plan is to continue current regimen and wean O2 as tolerated. She will be monitored closely for worsening of hypoxia or respiratory decompensation. Discussed with the patient and the nursing staff. 01/04: Hypoxia slightly worse, O2 increased from 10 to 15 L today. She has some productive cough which is painful. She is unable to tolerate exertion. She continued have some nausea and diarrhea. However she is able to tolerate Ensure well. Hemodynamically otherwise stable. Mentating well. The plan is to continue current regimen and wean O2 as tolerated. We will continue to monitor closely since hypoxia is getting worse. Pulmonary is following. Discussed with the patient and the nursing staff. 01/05/2021; patient continues to require 15 L oxygen In mild distress, Continue current management wean oxygen as tolerated 01/06/2021; patient remains on supplemental nasal cannula oxygen 15 L Wean as tolerated History Interval history: I have seen and examined the patient at the bedside Patient's chart and medications reviewed Patient continues to be on 15 L of nasal cannula oxygen with 100% FiO2 Patient complains of generalized weakness and shortness of breath In mild distress Hospitalist Physical - Constitutional Vitals: Temp Pulse Resp BP Pulse Ox 98.4 F 90 27 H 141/85 97 01/06/21 08:00 01/06/21 06:00 01/06/21 06:00 01/06/21 06:00 01/06/21 08:07 General appearance: Present: mild distress, well-nourished, obese (Morbidly obese) - EENT Eyes: Present: PERRL, EOM intact - Neck Neck: Present: supple, normal ROM - Respiratory Respiratory effort: normal Respiratory: bilateral: diminished, negative: rales, rhonchi, wheezing - Cardiovascular Rhythm: regular Heart Sounds: Present: S1 & S2 - Extremities Extremities: no ischemia, No edema - Abdominal General gastrointestinal: soft, non-tender, non-distended, normal bowel sounds - Integumentary Integumentary: Present: clear, warm - Psychiatric Psychiatric: appropriate mood/affect, cooperative - Neurologic Neurologic: CNII-XII intact, moves all extremities Results - Labs CBC & Chem 7: 12/31/20 13:06 01/04/21 05:09 Labs: Laboratory Last Values WBC 3.7 K/mm3 (4.5-11.0) L 12/31/20 13:06 RBC 4.78 M/mm3 (3.65-5.03) 12/31/20 13:06 Hgb 8.8 gm/dl (10.1-14.3) L 12/31/20 13:06 Hct 29.1 % (30.3-42.9) L 12/31/20 13:06 MCV 61 fl (79-97) L 12/31/20 13:06 MCH 18 pg (28-32) L 12/31/20 13:06 MCHC 30 % (30-34) 12/31/20 13:06 RDW 19.3 % (13.2-15.2) H 12/31/20 13:06 Plt Count 334 K/mm3 (140-440) 12/31/20 13:06 Lymph % (Auto) 17.8 % (13.4-35.0) 12/31/20 13:06 [place] % (Auto) 9.9 % (0.0-7.3) H 12/31/20 13:06 Eos % (Auto) 0.0 % (0.0-4.3) 12/31/20 13:06 Baso % (Auto) 0.5 % (0.0-1.8) 12/31/20 13:06 Lymph # (Auto) 0.7 K/mm3 (1.2-5.4) L 12/31/20 13:06 [place] # (Auto) 0.4 K/mm3 (0.0-0.8) 12/31/20 13:06 Eos # (Auto) 0.0 K/mm3 (0.0-0.4) 12/31/20 13:06 Baso # (Auto) 0.0 K/mm3 (0.0-0.1) 12/31/20 13:06 Seg Neutrophils % 71.8 % (40.0-70.0) H 12/31/20 13:06 Seg Neutrophils # 2.6 K/mm3 (1.8-7.7) 12/31/20 13:06 PT 13.4 Sec. (12.2-14.9) 12/31/20 13:06 INR 0.96 (0.87-1.13) 12/31/20 13:06 APTT 36.1 Sec. (24.2-36.6) 12/31/20 13:06 D-Dimer 141.20 ng/mlDDU (0-234) 12/31/20 13:06 Sodium 138 mmol/L (137-145) 01/04/21 05:09 Potassium 4.5 mmol/L (3.6-5.0) 01/04/21 05:09 Chloride 104.5 mmol/L (98-107) 01/04/21 05:09 Carbon Dioxide 24 mmol/L (22-30) 01/04/21 05:09 Anion Gap 14 mmol/L 01/04/21 05:09 BUN 15 mg/dL (7-17) 01/04/21 05:09 Creatinine 0.5 mg/dL (0.6-1.2) L 01/04/21 05:09 Estimated GFR > 60 ml/min 01/04/21 05:09 BUN/Creatinine Ratio 30 % 01/04/21 05:09 Glucose 114 mg/dL (65-100) H 01/04/21 05:09 Calcium 8.6 mg/dL (8.4-10.2) 01/04/21 05:09 Magnesium 2.10 mg/dL (1.7-2.3) 12/31/20 13:06 Ferritin 60.6 ng/mL (10.0-200.0) 12/31/20 13:06 Total Bilirubin 0.30 mg/dL (0.1-1.2) 01/04/21 05:09 AST 32 units/L (5-40) 01/04/21 05:09 ALT 30 units/L (7-56) 01/04/21 05:09 Alkaline Phosphatase 39 units/L (35-129) 01/04/21 05:09 Lactate Dehydrogenase 299 units/L (91-180) H 12/31/20 13:06 C-Reactive Protein 2.40 mg/dL (0.00-1.30) H 12/31/20 13:06 Total Protein 6.9 g/dL (6.3-8.2) 01/04/21 05:09 Albumin 3.4 g/dL (3.9-5) L 01/04/21 05:09 Albumin/Globulin Ratio 1.0 % 01/04/21 05:09 Procalcitonin < 0.05 ng/mL (<0.15) 12/31/20 13:06 HCG, Quant < 0.500 mIU/mL (0-4) 12/31/20 13:06 Coronavirus (PCR) Positive (Negative) A 01/01/21 Unknown Microbiology: Microbiology 12/31/20 15:25 Peripheral/Venous Blood Culture - Final NO GROWTH AFTER 5 DAYS 12/31/20 15:25 Peripheral/Venous Blood Culture - Final NO GROWTH AFTER 5 DAYS Alegria/IV: Voiding Method External Female Catheter Active Medications - Current Medications Current Medications: Generic Name Dose Route Start Last Admin Trade Name Freq PRN Reason Stop Dose Admin Acetaminophen 650 mg 01/01/21 09:00 01/05/21 22:18 Acetaminophen 325 Mg Tab PO 650 mg Q4H PRN Administration Pain, Mild (1-3) Ascorbic Acid 500 mg 01/01/21 10:00 01/05/21 22:19 Ascorbic Acid 500 Mg Tab PO 500 mg BID FAREED Administration Benzonatate 100 mg 01/03/21 01:09 01/06/21 06:20 Benzonatate 100 Mg Cap PO 100 mg Q8HR PRN Administration Cough Dexamethasone 8 mg 01/02/21 10:00 01/05/21 11:27 Dexamethasone 4 Mg/Ml Vial IV 01/11/21 10:01 8 mg DAILY FAREED Administration Famotidine 20 mg 01/01/21 10:00 01/05/21 22:19 Famotidine 20 Mg Tab PO 20 mg BID FAREED Administration Guaifenesin 600 mg 01/03/21 02:00 01/05/21 22:17 Guaifenesin Er 600 Mg Tab PO 600 mg BID FAREED Administration Zinc Sulfate 220 mg 01/01/21 10:00 01/05/21 22:19 Zinc Sulfate 220 Mg Cap PO 220 mg BID FAREED Administration Nutrition/Malnutrition Assess - Dietary Evaluation Nutrition/Malnutrition Findings: Nutrition Notes Start: 01/04/21 10:49 Freq: Status: Active Protocol: Document 01/05/21 09:43 (Rec: 01/05/21 09:53 [email or web address]) Nutrition Notes Initial or Follow up Assessment Current Diagnosis Respiratory Failure Other Pertinent Diagnosis SIRS, Pneu, COVID-19, transaminitis, anemia Current Diet regular Labs/Tests Reviewed Pertinent Medications NS at 75 ml/hr Zinc Vitamin C Height 5 ft 6 in Weight 92.1 kg [place] Body Weight (kg) 59.09 BMI 32.8 Weight Status Obese Subjective/Other Information Pt not answering phone. Per chart, she is drinking ONS and having some nausea and diarrhea. RN reports pt drinking at least 3 ONS daily but not eating meals. Her family brought 2.5 cases of Ensure for pt. Percent of energy/protein needs met: 71%/98% Burn Absent Trauma Absent GI Symptoms Nausea,Diarrhea Minimum of two criteria No #1 Nutrition Diagnosis Inadequate oral intake Etiology COVID-19 As Evidenced by Signs and Symptoms pt depending on ONS to meet needs Is patient on ventilator? No Is Patient Ambulatory and/or Out of Bed Yes [facility] [ 2063.075 NUTR.MSJOOB] Kcal/Kg value to use for calculation 16 Approximate Energy Requirements Using 1474 kcal/Kg Calculation Used for Recommendations Kcal/kg Additional Notes Protein: (0.8-1g/kg AdjBW: 76kg) 61-76g Fluid: 1 ml/kcal Nutrition Intervention Change Diet Order: Continue Add Supplement/Snack (indicate name/kcal Ensure Enlive TID /protein ) Provides kCal: 1,050 Provides Protein (gm) 60 Goal #1 Meet at least 75% of protein and kcal needs via PO and ONS intakes Anticipated Discharge Needs: Regular Follow-Up By: 01/09/21 Additional Comments F/u: intakes and ONS tolerance
[2021-01-06] MEDS: guaiFENesin ER 600 MG TAB PO SCH ×2 (09:44→22:54)
[2021-01-06] MEDS: FAMOTIDINE 20 MG TAB PO SCH ×2 (09:44→22:54)
[2021-01-06] MEDS: ASCORBIC ACID 500 MG TAB PO SCH ×2 (09:44→22:54)
[2021-01-06] MEDS: ZINC SULFATE 220 MG CAP PO SCH ×2 (09:44→22:54)
[2021-01-06] MEDS: dexAMETHasone 4 MG/ML VIAL IV SCH (09:44)
[2021-01-06] MEDS: ALPRAZolam 0.25 MG TAB PO PRN (18:09)
[2021-01-06] MEDS: ACETAMINOPHEN 325 MG TAB PO PRN (22:54)
[2021-01-07] MEDS: BENZONATATE 100 MG CAP PO PRN ×2 (07:04→22:18)
[2021-01-07] MEDS: ACETAMINOPHEN 325 MG TAB PO PRN ×2 (07:04→22:19)
--- NOTE | 2021-01-07 09:29 | Progress Note ---
Assessment and Plan Assessment and plan: 45-year-old morbidly obese female patient was admitted through emergency room with fever generalized body pains admitted as PUI Kumar PCR is tested positive, patient is evaluated by ID and is receiving tr eatment per COVID-19 guidelines. Patient remains on 15 L of nasal cannula supplemental oxygen --COVID-19 virus infection; solation precautions contact and droplet Patient is hypoxic requiring 2 to 3 L of nasal cannula oxygen Dexamethasone 8 mg IV daily total 10 doses Remdesivir per protocol total 5 doses Prone positioning Check inflammatory markers Home O2 evaluation Supportive medications zinc, ascorbic acid, vitamin D3 ID evaluation noted and appreciated We will closely monitor the patient and adjust the management as needed Plan of care reviewed with the patient and her nurse --Acute respiratory failure with hypoxia Current Visit: Yes Status: Acute Patient on 4 L nasal cannula oxygen Titrate oxygen to keep the sats level above 92% -- SIRS (systemic inflammatory response syndrome) Current Visit: Yes Status: Acute Inflammatory markers are elevated LDH is 299 CRP is 2.4 --Bilateral pneumonia Current Visit: Yes Status: Acute 1 empiric antibiotics, however procalcitonin is normal level No indication for antibiotics, discontinued Oxygen wean as tolerated, home O2 evaluation, follow cultures --Hypokalemia Current Visit: Yes Status: Acute Supplemented -- Anemia Current Visit: Yes Status: Chronic Anemia work-up. Monitor H&H --Hyponatremia/present on admission Current Visit: Yes Status: Acute Improved continue IV fluids normal saline Closely monitor -- Transaminitis Current Visit: Yes Status: Acute Mild, Possibly secondary to Covid --Morbid obesity; BMI 41.3/obesity hypoventilation Current Visit: Yes Status: Chronic Outpatient sleep study to rule out obstructive sleep apnea Patient needs weight reduction when medically stable Diet modification and exercise as tolerated and weight reduction -- DVT prophylaxis Current Visit: Yes Status: Acute On anticoagulation and GI prophylaxis 01/03: Patient has mild to moderate dyspnea at rest and with conversation. She is currently on oxygen O2 and FiO2 60%. She is unable to tolerate exertion. The plan is to continue current regimen and wean O2 as tolerated. She will be monitored closely for worsening of hypoxia or respiratory decompensation. Discussed with the patient and the nursing staff. 01/04: Hypoxia slightly worse, O2 increased from 10 to 15 L today. She has some productive cough which is painful. She is unable to tolerate exertion. She continued have some nausea and diarrhea. However she is able to tolerate Ensure well. Hemodynamically otherwise stable. Mentating well. The plan is to continue current regimen and wean O2 as tolerated. We will continue to monitor closely since hypoxia is getting worse. Pulmonary is following. Discussed with the patient and the nursing staff. 01/05/2021; patient continues to require 15 L oxygen In mild distress, Continue current management wean oxygen as tolerated 01/06/2021; patient remains on supplemental nasal cannula oxygen 15 L Wean as tolerated 01/07/2021; patient is on high flow nasal cannula oxygen 28 L/100%/95% FiO2 Very poor prognosis, continue current management History Interval history: Today patient is on high flow nasal cannula oxygen 28 L/100%/95% O2 sats Mild distress, sick looking Complains of fatigue and generalized weakness and shortness of breath Hospitalist Physical - Constitutional Vitals: Temp Pulse Resp BP Pulse Ox 99.0 F 97 H 32 H 116/73 95 01/07/21 07:30 01/07/21 07:00 01/07/21 07:04 01/07/21 07:00 01/07/21 07:26 General appearance: Present: mild distress, well-nourished, obese (Morbidly obese), other (On 28 L of high flow nasal cannula oxygen) - EENT Eyes: Present: PERRL, EOM intact - Neck Neck: Present: supple, normal ROM - Respiratory Respiratory effort: normal Respiratory: bilateral: diminished, rhonchi, negative: rales, wheezing - Cardiovascular Rhythm: regular Heart Sounds: Present: S1 & S2 - Extremities Extremities: no ischemia, No edema - Abdominal General gastrointestinal: soft, non-tender, non-distended, normal bowel sounds - Integumentary Integumentary: Present: clear, warm - Psychiatric Psychiatric: appropriate mood/affect, cooperative - Neurologic Neurologic: moves all extremities Results - Labs CBC & Chem 7: 12/31/20 13:06 01/04/21 05:09 Labs: Laboratory Last Values WBC 3.7 K/mm3 (4.5-11.0) L 12/31/20 13:06 RBC 4.78 M/mm3 (3.65-5.03) 12/31/20 13:06 Hgb 8.8 gm/dl (10.1-14.3) L 12/31/20 13:06 Hct 29.1 % (30.3-42.9) L 12/31/20 13:06 MCV 61 fl (79-97) L 12/31/20 13:06 MCH 18 pg (28-32) L 12/31/20 13:06 MCHC 30 % (30-34) 12/31/20 13:06 RDW 19.3 % (13.2-15.2) H 12/31/20 13:06 Plt Count 334 K/mm3 (140-440) 12/31/20 13:06 Lymph % (Auto) 17.8 % (13.4-35.0) 12/31/20 13:06 [place] % (Auto) 9.9 % (0.0-7.3) H 12/31/20 13:06 Eos % (Auto) 0.0 % (0.0-4.3) 12/31/20 13:06 Baso % (Auto) 0.5 % (0.0-1.8) 12/31/20 13:06 Lymph # (Auto) 0.7 K/mm3 (1.2-5.4) L 12/31/20 13:06 [place] # (Auto) 0.4 K/mm3 (0.0-0.8) 12/31/20 13:06 Eos # (Auto) 0.0 K/mm3 (0.0-0.4) 12/31/20 13:06 Baso # (Auto) 0.0 K/mm3 (0.0-0.1) 12/31/20 13:06 Seg Neutrophils % 71.8 % (40.0-70.0) H 12/31/20 13:06 Seg Neutrophils # 2.6 K/mm3 (1.8-7.7) 12/31/20 13:06 PT 13.4 Sec. (12.2-14.9) 12/31/20 13:06 INR 0.96 (0.87-1.13) 12/31/20 13:06 APTT 36.1 Sec. (24.2-36.6) 12/31/20 13:06 D-Dimer 141.20 ng/mlDDU (0-234) 12/31/20 13:06 Sodium 138 mmol/L (137-145) 01/04/21 05:09 Potassium 4.5 mmol/L (3.6-5.0) 01/04/21 05:09 Chloride 104.5 mmol/L (98-107) 01/04/21 05:09 Carbon Dioxide 24 mmol/L (22-30) 01/04/21 05:09 Anion Gap 14 mmol/L 01/04/21 05:09 BUN 15 mg/dL (7-17) 01/04/21 05:09 Creatinine 0.5 mg/dL (0.6-1.2) L 01/04/21 05:09 Estimated GFR > 60 ml/min 01/04/21 05:09 BUN/Creatinine Ratio 30 % 01/04/21 05:09 Glucose 114 mg/dL (65-100) H 01/04/21 05:09 Calcium 8.6 mg/dL (8.4-10.2) 01/04/21 05:09 Magnesium 2.10 mg/dL (1.7-2.3) 12/31/20 13:06 Ferritin 60.6 ng/mL (10.0-200.0) 12/31/20 13:06 Total Bilirubin 0.30 mg/dL (0.1-1.2) 01/04/21 05:09 AST 32 units/L (5-40) 01/04/21 05:09 ALT 30 units/L (7-56) 01/04/21 05:09 Alkaline Phosphatase 39 units/L (35-129) 01/04/21 05:09 Lactate Dehydrogenase 299 units/L (91-180) H 12/31/20 13:06 C-Reactive Protein 2.40 mg/dL (0.00-1.30) H 12/31/20 13:06 Total Protein 6.9 g/dL (6.3-8.2) 01/04/21 05:09 Albumin 3.4 g/dL (3.9-5) L 01/04/21 05:09 Albumin/Globulin Ratio 1.0 % 01/04/21 05:09 Procalcitonin < 0.05 ng/mL (<0.15) 12/31/20 13:06 HCG, Quant < 0.500 mIU/mL (0-4) 12/31/20 13:06 Coronavirus (PCR) Positive (Negative) A 01/01/21 Unknown Alegria/IV: Voiding Method External Female Catheter Active Medications - Current Medications Current Medications: Generic Name Dose Route Start Last Admin Trade Name Freq PRN Reason Stop Dose Admin Acetaminophen 650 mg 01/01/21 09:00 01/07/21 07:04 Acetaminophen 325 Mg Tab PO 650 mg Q4H PRN Administration Pain, Mild (1-3) Alprazolam 0.25 mg 01/06/21 17:53 01/06/21 18:09 Alprazolam 0.25 Mg Tab PO 0.25 mg Q8H PRN Administration Anxiety Ascorbic Acid 500 mg 01/01/21 10:00 01/06/21 22:54 Ascorbic Acid 500 Mg Tab PO 500 mg BID FAREED Administration Benzonatate 100 mg 01/03/21 01:09 01/07/21 07:04 Benzonatate 100 Mg Cap PO 100 mg Q8HR PRN Administration Cough Dexamethasone 8 mg 01/02/21 10:00 01/06/21 09:44 Dexamethasone 4 Mg/Ml Vial IV 01/11/21 10:01 8 mg DAILY FAREED Administration Famotidine 20 mg 01/01/21 10:00 01/06/21 22:54 Famotidine 20 Mg Tab PO 20 mg BID FAREED Administration Guaifenesin 600 mg 01/03/21 02:00 01/06/21 22:54 Guaifenesin Er 600 Mg Tab PO 600 mg BID FAREED Administration Zinc Sulfate 220 mg 01/01/21 10:00 01/06/21 22:54 Zinc Sulfate 220 Mg Cap PO 220 mg BID FAREED Administration Nutrition/Malnutrition Assess - Dietary Evaluation Nutrition/Malnutrition Findings: Nutrition Notes Start: 01/04/21 10:49 Freq: Status: Active Protocol: Document 01/05/21 09:43 (Rec: 01/05/21 09:53 [id number]) Nutrition Notes Initial or Follow up Assessment Current Diagnosis Respiratory Failure Other Pertinent Diagnosis SIRS, Pneu, COVID-19, transaminitis, anemia Current Diet regular Labs/Tests Reviewed Pertinent Medications NS at 75 ml/hr Zinc Vitamin C Height 5 ft 6 in Weight 92.1 kg [place] Body Weight (kg) 59.09 BMI 32.8 Weight Status Obese Subjective/Other Information Pt not answering phone. Per chart, she is drinking ONS and having some nausea and diarrhea. RN reports pt drinking at least 3 ONS daily but not eating meals. Her family brought 2.5 cases of Ensure for pt. Percent of energy/protein needs met: 71%/98% Burn Absent Trauma Absent GI Symptoms Nausea,Diarrhea Minimum of two criteria No #1 Nutrition Diagnosis Inadequate oral intake Etiology COVID-19 As Evidenced by Signs and Symptoms pt depending on ONS to meet needs Is patient on ventilator? No Is Patient Ambulatory and/or Out of Bed Yes REE-([place]-ambulatory/OOB) [ 4.075 NUTR.MSJOOB] Kcal/Kg value to use for calculation 16 Approximate Energy Requirements Using 1474 kcal/Kg Calculation Used for Recommendations Kcal/kg Additional Notes Protein: (0.8-1g/kg AdjBW: 76kg) 61-76g Fluid: 1 ml/kcal Nutrition Intervention Change Diet Order: Continue Add Supplement/Snack (indicate name/kcal Ensure Enlive TID /protein ) Provides kCal: 1,050 Provides Protein (gm) 60 Goal #1 Meet at least 75% of protein and kcal needs via PO and ONS intakes Anticipated Discharge Needs: Regular Follow-Up By: 01/09/21 Additional Comments F/u: intakes and ONS tolerance
[2021-01-07] MEDS: ASCORBIC ACID 500 MG TAB PO SCH ×2 (09:59→22:18)
[2021-01-07] MEDS: guaiFENesin ER 600 MG TAB PO SCH ×2 (09:59→22:18)
[2021-01-07] MEDS: ZINC SULFATE 220 MG CAP PO SCH ×2 (09:59→22:18)
[2021-01-07] MEDS: FAMOTIDINE 20 MG TAB PO SCH ×2 (09:59→22:18)
[2021-01-07] MEDS: dexAMETHasone 4 MG/ML VIAL IV SCH (10:02)
[2021-01-07 11:32] LABS: C-Reactive Protein 13.6 mg/dL (0.00-1.30)
[2021-01-07] MEDS ORDERED: ENOXAPARIN 100 MG/1 ML INJ SUB-Q SCH ×2 (18:30→22:00)
[2021-01-07] MEDS: ALPRAZolam 0.25 MG TAB PO PRN (22:18)
[2021-01-07] MEDS: ENOXAPARIN 100 MG/1 ML INJ SUB-Q SCH (22:19)
--- NOTE | 2021-01-08 09:12 | Progress Note ---
Assessment and Plan Assessment and plan: 45-year-old morbidly obese female patient was admitted through emergency room with fever generalized body pains admitted as PUI Kumar PCR is tested positive, patient is evaluated by ID and is receiving tr eatment per COVID-19 guidelines. Patient remains on 15 L of high flow nasal cannula supplemental oxygen --Acute respiratory failure with hypoxia/severe COVID-19 pneumonia Current Visit: Yes Status: Acute Patient on 15 L high flow nasal cannula oxygen Wean as tolerated, prone positioning Patient is requiring high flow nasal cannula HFNC 15 L/100% FiO2/91% O2 sats And is critically ill with severe Covid 19 pneumonia. Very high inflammatory markers markers --Severe COVID-19 virus infection; solation precautions contact and droplet Patient is currently requiring 15 L high flow nasal cannula oxygen Severely hypoxemic, wean as tolerated Dexamethasone 8 mg IV daily total 10 doses Remdesivir per protocol total 5 doses Prone positioning Check inflammatory markers Home O2 evaluation Supportive medications zinc, ascorbic acid, vitamin D3 ID evaluation noted and appreciated We will closely monitor the patient and adjust the management as needed Plan of care reviewed with the patient and her nurse Patient is critically ill with very poor prognosis , severe hypoxia requiring high flow nasal cannula oxygen, severe COVID-19 pneumonia Very high D-dimers requiring empiric anticoagulation The high probability of a clinically significant, sudden or life threatening deterioration of the multiple systems [cardiology/pulm, infectious diseases, COVID-19] system(s) required my full and direct attention, intervention and personal management. The aggregate critical care time was [62] minutes. This time is in addition to time spent performing reported procedures but includes th e following: [x] Data Review and interpretation [x] Patient assessment and monitoring of vital signs [x] Documentation [x] Medication orders and management --Very high-dimers;> 4000, check CTA chest to rule out PE, lower extremity venous Doppler to rule out DVT Patient has severe COVID-19 pneumonia, on high flow nasal cannula oxygen, elevated D-dimers Will start Empiric therapeutic anticoagulation with Lovenox -- SIRS (systemic inflammatory response syndrome) Current Visit: Yes Status: Acute Inflammatory markers are elevated LDH is 299 CRP is 2.4 High D-dimers, rule out PE and DVT --Bilateral pneumonia Current Visit: Yes Status: Acute 1 empiric antibiotics, however procalcitonin is normal level No indication for antibiotics, discontinued Oxygen wean as tolerated, home O2 evaluation, follow cultures --Hypokalemia Current Visit: Yes Status: Acute Supplemented -- Anemia Current Visit: Yes Status: Chronic Anemia work-up. Monitor H&H --Hyponatremia/present on admission Current Visit: Yes Status: Acute Improved continue IV fluids normal saline Closely monitor -- Transaminitis Current Visit: Yes Status: Acute Mild, Possibly secondary to Covid --Morbid obesity; BMI 41.3/obesity hypoventilation Current Visit: Yes Status: Chronic Outpatient sleep study to rule out obstructive sleep apnea Patient needs weight reduction when medically stable Diet modification and exercise as tolerated and weight reduction -- DVT prophylaxis Current Visit: Yes Status: Acute On anticoagulation and GI prophylaxis 01/03: Patient has mild to moderate dyspnea at rest and with conversation. She is currently on oxygen O2 and FiO2 60%. She is unable to tolerate exertion. The plan is to continue current regimen and wean O2 as tolerated. She will be monitored closely for worsening of hypoxia or respiratory decompensation. Discussed with the patient and the nursing staff. 01/04: Hypoxia slightly worse, O2 increased from 10 to 15 L today. She has some productive cough which is painful. She is unable to tolerate exertion. She continued have some nausea and diarrhea. However she is able to tolerate Ensure well. Hemodynamically otherwise stable. Mentating well. The plan is to continue current regimen and wean O2 as tolerated. We will continue to monitor closely since hypoxia is getting worse. Pulmonary is following. Discussed with the patient and the nursing staff. 01/05/2021; patient continues to require 15 L oxygen In mild distress, Continue current management wean oxygen as tolerated 01/06/2021; patient remains on supplemental nasal cannula oxygen 15 L Wean as tolerated 01/07/2021; patient is on high flow nasal cannula oxygen 28 L/100%/95% FiO2 Very poor prognosis, continue current management 01/08/2021; patient is on high flow nasal cannula oxygen at 15 L/100%/97% O2 sats Wean as tolerated, home O2 evaluation Critically ill with very poor prognosis Patient is aware We will try to contact family to update them patient's condition History Interval history: Patient remains on high flow nasal cannula oxygen at 15 L 100% FiO2 and 97% O2 sats mild distress I have seen and examined the patient at the bedside this morning Isolation precautions PPE protocols strictly followed Patient complains of shortness of breath and generalized weakness Vital signs noted Hospitalist Physical - Constitutional Vitals: Temp Pulse Resp BP Pulse Ox 98.2 F 98 H 20 99/72 93 01/08/21 08:00 01/08/21 08:01 01/08/21 08:01 01/08/21 08:01 01/08/21 08:01 General appearance: Present: mild distress, well-nourished, obese (Morbidly obese), other (On 28 L of high flow nasal cannula oxygen) - EENT Eyes: Present: PERRL, EOM intact - Neck Neck: Present: supple, normal ROM - Respiratory Respiratory effort: labored Respiratory: bilateral: diminished, rhonchi, negative: rales, wheezing - Cardiovascular Rhythm: regular Heart Sounds: Present: S1 & S2 - Extremities Extremities: no ischemia, No edema - Abdominal General gastrointestinal: soft, non-tender, non-distended, normal bowel sounds - Integumentary Integumentary: Present: clear, warm - Psychiatric Psychiatric: appropriate mood/affect, cooperative - Neurologic Neurologic: CNII-XII intact, moves all extremities Results - Labs CBC & Chem 7: 12/31/20 13:06 01/04/21 05:09 Labs: Laboratory Last Values WBC 3.7 K/mm3 (4.5-11.0) L 12/31/20 13:06 RBC 4.78 M/mm3 (3.65-5.03) 12/31/20 13:06 Hgb 8.8 gm/dl (10.1-14.3) L 12/31/20 13:06 Hct 29.1 % (30.3-42.9) L 12/31/20 13:06 MCV 61 fl (79-97) L 12/31/20 13:06 MCH 18 pg (28-32) L 12/31/20 13:06 MCHC 30 % (30-34) 12/31/20 13:06 RDW 19.3 % (13.2-15.2) H 12/31/20 13:06 Plt Count 334 K/mm3 (140-440) 12/31/20 13:06 Lymph % (Auto) 17.8 % (13.4-35.0) 12/31/20 13:06 [place] % (Auto) 9.9 % (0.0-7.3) H 12/31/20 13:06 Eos % (Auto) 0.0 % (0.0-4.3) 12/31/20 13:06 Baso % (Auto) 0.5 % (0.0-1.8) 12/31/20 13:06 Lymph # (Auto) 0.7 K/mm3 (1.2-5.4) L 12/31/20 13:06 [place] # (Auto) 0.4 K/mm3 (0.0-0.8) 12/31/20 13:06 Eos # (Auto) 0.0 K/mm3 (0.0-0.4) 12/31/20 13:06 Baso # (Auto) 0.0 K/mm3 (0.0-0.1) 12/31/20 13:06 Seg Neutrophils % 71.8 % (40.0-70.0) H 12/31/20 13:06 Seg Neutrophils # 2.6 K/mm3 (1.8-7.7) 12/31/20 13:06 PT 13.4 Sec. (12.2-14.9) 12/31/20 13:06 INR 0.96 (0.87-1.13) 12/31/20 13:06 APTT 36.1 Sec. (24.2-36.6) 12/31/20 13:06 D-Dimer 4795.16 ng/mlDDU (0-234) H 01/07/21 10:34 Sodium 138 mmol/L (137-145) 01/04/21 05:09 Potassium 4.5 mmol/L (3.6-5.0) 01/04/21 05:09 Chloride 104.5 mmol/L (98-107) 01/04/21 05:09 Carbon Dioxide 24 mmol/L (22-30) 01/04/21 05:09 Anion Gap 14 mmol/L 01/04/21 05:09 BUN 15 mg/dL (7-17) 01/04/21 05:09 Creatinine 0.5 mg/dL (0.6-1.2) L 01/04/21 05:09 Estimated GFR > 60 ml/min 01/04/21 05:09 BUN/Creatinine Ratio 30 % 01/04/21 05:09 Glucose 114 mg/dL (65-100) H 01/04/21 05:09 Calcium 8.6 mg/dL (8.4-10.2) 01/04/21 05:09 Magnesium 2.10 mg/dL (1.7-2.3) 12/31/20 13:06 Ferritin 41.6 ng/mL (10.0-200.0) 01/07/21 10:34 Total Bilirubin 0.30 mg/dL (0.1-1.2) 01/04/21 05:09 AST 32 units/L (5-40) 01/04/21 05:09 ALT 30 units/L (7-56) 01/04/21 05:09 Alkaline Phosphatase 39 units/L (35-129) 01/04/21 05:09 Lactate Dehydrogenase 399 units/L (91-180) H 01/07/21 10:34 C-Reactive Protein 13.60 mg/dL (0.00-1.30) H 01/07/21 10:34 Total Protein 6.9 g/dL (6.3-8.2) 01/04/21 05:09 Albumin 3.4 g/dL (3.9-5) L 01/04/21 05:09 Albumin/Globulin Ratio 1.0 % 01/04/21 05:09 Procalcitonin < 0.05 ng/mL (<0.15) 12/31/20 13:06 HCG, Quant < 0.500 mIU/mL (0-4) 12/31/20 13:06 Coronavirus (PCR) Positive (Negative) A 01/01/21 Unknown Alegria/IV: Voiding Method External Female Catheter Active Medications - Current Medications Current Medications: Generic Name Dose Route Start Last Admin Trade Name Freq PRN Reason Stop Dose Admin Acetaminophen 650 mg 01/01/21 09:00 01/07/21 22:19 Acetaminophen 325 Mg Tab PO 650 mg Q4H PRN Administration Pain, Mild (1-3) Alprazolam 0.25 mg 01/06/21 17:53 01/07/21 22:18 Alprazolam 0.25 Mg Tab PO 0.25 mg Q8H PRN Administration Anxiety Ascorbic Acid 500 mg 01/01/21 10:00 01/07/21 22:18 Ascorbic Acid 500 Mg Tab PO 500 mg BID FAREED Administration Benzonatate 100 mg 01/03/21 01:09 01/07/21 22:18 Benzonatate 100 Mg Cap PO 100 mg Q8HR PRN Administration Cough Dexamethasone 8 mg 01/02/21 10:00 01/07/21 10:02 Dexamethasone 4 Mg/Ml Vial IV 01/11/21 10:01 8 mg DAILY FAREED Administration Enoxaparin Sodium 100 mg 01/07/21 22:00 01/07/21 22:19 Enoxaparin 100 Mg/1 Ml Inj 1 mg/kg (90 mg) 100 mg SUB-Q Administration Q12HR [facility] Protocol Famotidine 20 mg 01/01/21 10:00 01/07/21 22:18 Famotidine 20 Mg Tab PO 20 mg BID FAREED Administration Guaifenesin 600 mg 01/03/21 02:00 01/07/21 22:18 Guaifenesin Er 600 Mg Tab PO 600 mg BID FAREED Administration Zinc Sulfate 220 mg 01/01/21 10:00 01/07/21 22:18 Zinc Sulfate 220 Mg Cap PO 220 mg BID FAREED Administration Nutrition/Malnutrition Assess - Dietary Evaluation Nutrition/Malnutrition Findings: Nutrition Notes Start: 01/04/21 10:49 Freq: Status: Active Protocol: Document 01/05/21 09:43 (Rec: 01/05/21 09:53 [id number]) Nutrition Notes Initial or Follow up Assessment Current Diagnosis Respiratory Failure Other Pertinent Diagnosis SIRS, Pneu, COVID-19, transaminitis, anemia Current Diet regular Labs/Tests Reviewed Pertinent Medications NS at 75 ml/hr Zinc Vitamin C Height 5 ft 6 in Weight 92.1 kg [place] Body Weight (kg) 59.09 BMI 32.8 Weight Status Obese Subjective/Other Information Pt not answering phone. Per chart, she is drinking ONS and having some nausea and diarrhea. RN reports pt drinking at least 3 ONS daily but not eating meals. Her family brought 2.5 cases of Ensure for pt. Percent of energy/protein needs met: 71%/98% Burn Absent Trauma Absent GI Symptoms Nausea,Diarrhea Minimum of two criteria No #1 Nutrition Diagnosis Inadequate oral intake Etiology COVID-19 As Evidenced by Signs and Symptoms pt depending on ONS to meet needs Is patient on ventilator? No Is Patient Ambulatory and/or Out of Bed Yes REE-([place]-St. Jeor-ambulatory/OOB) [ 2063.075 NUTR.MSJOOB] Kcal/Kg value to use for calculation 16 Approximate Energy Requirements Using 1474 kcal/Kg Calculation Used for Recommendations Kcal/kg Additional Notes Protein: (0.8-1g/kg AdjBW: 76kg) 61-76g Fluid: 1 ml/kcal Nutrition Intervention Change Diet Order: Continue Add Supplement/Snack (indicate name/kcal Ensure Enlive TID /protein ) Provides kCal: 1,050 Provides Protein (gm) 60 Goal #1 Meet at least 75% of protein and kcal needs via PO and ONS intakes Anticipated Discharge Needs: Regular Follow-Up By: 01/09/21 Additional Comments F/u: intakes and ONS tolerance
[2021-01-08] MEDS: ASCORBIC ACID 500 MG TAB PO SCH ×2 (09:59→22:28)
[2021-01-08] MEDS: FAMOTIDINE 20 MG TAB PO SCH ×2 (09:59→22:29)
[2021-01-08] MEDS: ZINC SULFATE 220 MG CAP PO SCH ×2 (09:59→22:29)
[2021-01-08] MEDS: ENOXAPARIN 100 MG/1 ML INJ SUB-Q SCH ×2 (09:59→22:28)
[2021-01-08] MEDS: guaiFENesin ER 600 MG TAB PO SCH ×2 (09:59→22:28)
[2021-01-08] MEDS: dexAMETHasone 4 MG/ML VIAL IV SCH (09:59)
[2021-01-08] MEDS: ALPRAZolam 0.25 MG TAB PO PRN (22:30)
[2021-01-09] MEDS: dexAMETHasone 4 MG/ML VIAL IV SCH (10:08)
[2021-01-09] MEDS: ASCORBIC ACID 500 MG TAB PO SCH ×2 (10:08→22:30)
[2021-01-09] MEDS: ENOXAPARIN 100 MG/1 ML INJ SUB-Q SCH ×2 (10:09→22:29)
[2021-01-09] MEDS: ZINC SULFATE 220 MG CAP PO SCH ×2 (10:09→22:30)
[2021-01-09] MEDS: FAMOTIDINE 20 MG TAB PO SCH ×2 (10:09→22:31)
[2021-01-09] MEDS: guaiFENesin ER 600 MG TAB PO SCH ×2 (10:09→22:30)
--- NOTE | 2021-01-09 13:12 | Vascular Lab Report ---
DUPLEX DOPPLER LOWER EXTREMITY VEINS, BILATERAL INDICATION: Covid/elevated D-dimers/hypoxia/rule out DVT. TECHNIQUE: Duplex doppler imaging was performed through the veins of both lower extremities using ve nous compression and other maneuvers. COMPARISON: No relevant prior imaging study available. FINDINGS: Right Common femoral vein: Negative. Right Superficial femoral vein: Negative. Right Popliteal vein: Negative. Right Calf veins: Negative. Left Common femoral vein: Negative. Left Superficial femoral vein: Negative. Left Popliteal vein: Negative. Left Calf veins: Negative. Additional findings: None. IMPRESSION: No sonographic evidence for DVT in either lower extremity. Signer Name: Tramaine Mandel Jr, MD Signed: 01/09/2021 1:08 PM Workstation Name: [id number]
--- NOTE | 2021-01-09 16:22 | Progress Note ---
Assessment and Plan Assessment and plan: 45-year-old morbidly obese female patient was admitted through emergency room with fever generalized body pains admitted as PUI Kumar PCR is tested positive, patient is evaluated by ID and is receiving tr eatment per COVID-19 guidelines. --Acute respiratory failure with hypoxia/severe COVID-19 pneumonia Current Visit: Yes Status: Acute Patient on 15 L high flow nasal cannula oxygen Wean as tolerated, prone positioning Patient is requiring high flow nasal cannula HFNC 15 L/100% FiO2/91% O2 sats And is critically ill with severe Covid 19 pneumonia. Very high inflammatory markers markers --Severe COVID-19 virus infection; solation precautions contact and droplet Patient is currently requiring 15 L high flow nasal cannula oxygen Severely hypoxemic, wean as tolerated Dexamethasone 8 mg IV daily total 10 doses Remdesivir per protocol total 5 doses Prone positioning Check inflammatory markers Home O2 evaluation Supportive medications zinc, ascorbic acid, vitamin D3 ID evaluation noted and appreciated We will closely monitor the patient and adjust the management as needed Plan of care reviewed with the patient and her nurse Patient is critically ill with very poor prognosis , severe hypoxia requiring high flow nasal cannula oxygen, severe COVID-19 pneumonia Very high D-dimers requiring empiric anticoagulation The high probability of a clinically significant, sudden or life threatening deterioration of the multiple systems [cardiology/pulm, infectious diseases, COVID-19] system(s) required my full and direct attention, intervention and personal management. The aggregate critical care time was [62] minutes. This time is in addition to time spent performing reported procedures but includes the following: [x] Data Review and interpretation [x] Patient assessment and monitoring of vital signs [x] Documentation [x] Medication orders and management --Very high-dimers;> 4000, check CTA chest to rule out PE, lower extremity venous Doppler to rule out DVT Patient has severe COVID-19 pneumonia, on high flow nasal cannula oxygen, elevated D-dimers Will start Empiric therapeutic anticoagulation with Lovenox -- SIRS (systemic inflammatory response syndrome) Current Visit: Yes Status: Acute Inflammatory markers are elevated LDH is 299 CRP is 2.4 High D-dimers, rule out PE and DVT --Bilateral pneumonia Current Visit: Yes Status: Acute 1 empiric antibiotics, however procalcitonin is normal level No indication for antibiotics, discontinued Oxygen wean as tolerated, home O2 evaluation, follow cultures --Hypokalemia Current Visit: Yes Status: Acute Supplemented -- Anemia Current Visit: Yes Status: Chronic Anemia work-up. Monitor H&H --Hyponatremia/present on admission Current Visit: Yes Status: Acute Improved continue IV fluids normal saline Closely monitor -- Transaminitis Current Visit: Yes Status: Acute Mild, Possibly secondary to Covid --Morbid obesity; BMI 41.3/obesity hypoventilation Current Visit: Yes Status: Chronic Outpatient sleep study to rule out obstructive sleep apnea Patient needs weight reduction when medically stable Diet modification and exercise as tolerated and weight reduction -- DVT prophylaxis Current Visit: Yes Status: Acute On anticoagulation and GI prophylaxis 01/03: Patient has mild to moderate dyspnea at rest and with conversation. She is currently on oxygen O2 and FiO2 60%. She is unable to tolerate exertion. The plan is to continue current regimen and wean O2 as tolerated. She will be monitored closely for worsening of hypoxia or respiratory decompensation. Discussed with the patient and the nursing staff. 01/04: Hypoxia slightly worse, O2 increased from 10 to 15 L today. She has some productive cough which is painful. She is unable to tolerate exertion. She continued have some nausea and diarrhea. However she is able to tolerate Ensure well. Hemodynamically otherwise stable. Mentating well. The plan is to con tinue current regimen and wean O2 as tolerated. We will continue to monitor closely since hypoxia is getting worse. Pulmonary is following. Discussed with the patient and the nursing staff. 01/05/2021; patient continues to require 15 L oxygen In mild distress, Continue current management wean oxygen as tolerated 01/06/2021; patient remains on supplemental nasal cannula oxygen 15 L Wean as tolerated 01/07/2021; patient is on high flow nasal cannula oxygen 28 L/100%/95% FiO2 Very poor prognosis, continue current management 01/08/2021; patient is on high flow nasal cannula oxygen at 15 L/100%/97% O2 sats Wean as tolerated, home O2 evaluation Critically ill with very poor prognosis Patient is aware We will try to contact family to update them patient's condition 01/09/2021; On high flow nasal cannula 10 L, wean as tolerated Patient remains on 15 L of high flow nasal cannula supplemental oxygen Seen and examined the patient at the bedside patient continues to have 10 L of nasal cannula oxygen and O2 sats 94% History Interval history: Patient remains on 15 L of high flow nasal cannula supplemental oxygen Seen and examined the patient at the bedside patient continues to have 10 L of nasal cannula oxygen and O2 sats 94% Hospitalist Physical - Constitutional Vitals: Temp Pulse Resp BP Pulse Ox 98.5 F 91 H 30 H 111/74 99 01/09/21 12:00 01/09/21 15:00 01/09/21 15:00 01/09/21 15:00 01/09/21 15:00 General appearance: Present: mild distress, well-nourished, obese (Morbidly obese), other (On 28 L of high flow nasal cannula oxygen) - EENT Eyes: Present: PERRL, EOM intact - Neck Neck: Present: supple, normal ROM - Respiratory Respiratory effort: normal Respiratory: bilateral: diminished, rhonchi, negative: rales, wheezing - Cardiovascular Rhythm: regular Heart Sounds: Present: S1 & S2 - Extremities Extremities: no ischemia, No edema - Abdominal General gastrointestinal: soft, non-tender, non-distended, normal bowel sounds - Integumentary Integumentary: Present: clear, dry - Psychiatric Psychiatric: appropriate mood/affect, cooperative - Neurologic Neurologic: CNII-XII intact, moves all extremities Results - Labs CBC & Chem 7: 12/31/20 13:06 01/04/21 05:09 Labs: Laboratory Last Values WBC 3.7 K/mm3 (4.5-11.0) L 12/31/20 13:06 RBC 4.78 M/mm3 (3.65-5.03) 12/31/20 13:06 Hgb 8.8 gm/dl (10.1-14.3) L 12/31/20 13:06 Hct 29.1 % (30.3-42.9) L 12/31/20 13:06 MCV 61 fl (79-97) L 12/31/20 13:06 MCH 18 pg (28-32) L 12/31/20 13:06 MCHC 30 % (30-34) 12/31/20 13:06 RDW 19.3 % (13.2-15.2) H 12/31/20 13:06 Plt Count 334 K/mm3 (140-440) 12/31/20 13:06 Lymph % (Auto) 17.8 % (13.4-35.0) 12/31/20 13:06 [place] % (Auto) 9.9 % (0.0-7.3) H 12/31/20 13:06 Eos % (Auto) 0.0 % (0.0-4.3) 12/31/20 13:06 Baso % (Auto) 0.5 % (0.0-1.8) 12/31/20 13:06 Lymph # (Auto) 0.7 K/mm3 (1.2-5.4) L 12/31/20 13:06 [place] # (Auto) 0.4 K/mm3 (0.0-0.8) 12/31/20 13:06 Eos # (Auto) 0.0 K/mm3 (0.0-0.4) 12/31/20 13:06 Baso # (Auto) 0.0 K/mm3 (0.0-0.1) 12/31/20 13:06 Seg Neutrophils % 71.8 % (40.0-70.0) H 12/31/20 13:06 Seg Neutrophils # 2.6 K/mm3 (1.8-7.7) 12/31/20 13:06 PT 13.4 Sec. (12.2-14.9) 12/31/20 13:06 INR 0.96 (0.87-1.13) 12/31/20 13:06 APTT 36.1 Sec. (24.2-36.6) 12/31/20 13:06 D-Dimer 4795.16 ng/mlDDU (0-234) H 01/07/21 10:34 Sodium 138 mmol/L (137-145) 01/04/21 05:09 Potassium 4.5 mmol/L (3.6-5.0) 01/04/21 05:09 Chloride 104.5 mmol/L (98-107) 01/04/21 05:09 Carbon Dioxide 24 mmol/L (22-30) 01/04/21 05:09 Anion Gap 14 mmol/L 01/04/21 05:09 BUN 15 mg/dL (7-17) 01/04/21 05:09 Creatinine 0.5 mg/dL (0.6-1.2) L 01/04/21 05:09 Estimated GFR > 60 ml/min 01/04/21 05:09 BUN/Creatinine Ratio 30 % 01/04/21 05:09 Glucose 114 mg/dL (65-100) H 01/04/21 05:09 Calcium 8.6 mg/dL (8.4-10.2) 01/04/21 05:09 Magnesium 2.10 mg/dL (1.7-2.3) 12/31/20 13:06 Ferritin 41.6 ng/mL (10.0-200.0) 01/07/21 10:34 Total Bilirubin 0.30 mg/dL (0.1-1.2) 01/04/21 05:09 AST 32 units/L (5-40) 01/04/21 05:09 ALT 30 units/L (7-56) 01/04/21 05:09 Alkaline Phosphatase 39 units/L (35-129) 01/04/21 05:09 Lactate Dehydrogenase 399 units/L (91-180) H 01/07/21 10:34 C-Reactive Protein 13.60 mg/dL (0.00-1.30) H 01/07/21 10:34 Total Protein 6.9 g/dL (6.3-8.2) 01/04/21 05:09 Albumin 3.4 g/dL (3.9-5) L 01/04/21 05:09 Albumin/Globulin Ratio 1.0 % 01/04/21 05:09 Procalcitonin < 0.05 ng/mL (<0.15) 12/31/20 13:06 HCG, Quant < 0.500 mIU/mL (0-4) 12/31/20 13:06 Coronavirus (PCR) Positive (Negative) A 01/01/21 Unknown Alegria/IV: Voiding Method External Female Catheter Active Medications - Current Medications Current Medications: Generic Name Dose Route Start Last Admin Trade Name Freq PRN Reason Stop Dose Admin Acetaminophen 650 mg 01/01/21 09:00 01/07/21 22:19 Acetaminophen 325 Mg Tab PO 650 mg Q4H PRN Administration Pain, Mild (1-3) Alprazolam 0.25 mg 01/06/21 17:53 01/08/21 22:30 Alprazolam 0.25 Mg Tab PO 0.25 mg Q8H PRN Administration Anxiety Ascorbic Acid 500 mg 01/01/21 10:00 01/09/21 10:08 Ascorbic Acid 500 Mg Tab PO 500 mg BID FAREED Administration Benzonatate 100 mg 01/03/21 01:09 01/07/21 22:18 Benzonatate 100 Mg Cap PO 100 mg Q8HR PRN Administration Cough Dexamethasone 8 mg 01/02/21 10:00 01/09/21 10:08 Dexamethasone 4 Mg/Ml Vial IV 01/11/21 10:01 8 mg DAILY FAREED Administration Enoxaparin Sodium 100 mg 01/07/21 22:00 01/09/21 10:09 Enoxaparin 100 Mg/1 Ml Inj 1 mg/kg (90 mg) 100 mg SUB-Q Administration Q12HR [facility] Protocol Famotidine 20 mg 01/01/21 10:00 01/09/21 10:09 Famotidine 20 Mg Tab PO 20 mg BID FAREED Administration Guaifenesin 600 mg 01/03/21 02:00 01/09/21 10:09 Guaifenesin Er 600 Mg Tab PO 600 mg BID FAREED Administration Zinc Sulfate 220 mg 01/01/21 10:00 01/09/21 10:09 Zinc Sulfate 220 Mg Cap PO 220 mg BID FAREED Administration Nutrition/Malnutrition Assess - Dietary Evaluation Nutrition/Malnutrition Findings: Nutrition Notes Start: 01/04/21 10:49 Freq: Status: Active Protocol: Document 01/09/21 11:27 (Rec: 01/09/21 11:30 [id number]) Nutrition Notes Initial or Follow up Reassessment Current Diagnosis Respiratory Failure Other Pertinent Diagnosis SIRS, Pneu, COVID-19, transaminitis, anemia Current Diet regular Labs/Tests Reviewed Pertinent Medications Decadron Height 5 ft 6 in Weight 92 kg [place] Body Weight (kg) 59.09 BMI 32.7 Weight Status Obese Subjective/Other Information Pt not answering phone. RN reports pt continues to drink ONS from home (3 daily) and is eating 25-30% of meals since taste has improved. Percent of energy/protein needs met: 100%/100% Burn Absent Trauma Absent GI Symptoms None Current % PO Poor (25-49%) Minimum of two criteria No #1 Nutrition Diagnosis Inadequate oral intake As Evidenced by Signs and Symptoms pt eating 25-30% of meals Diagnosis Progress(for reassessment Improved documentation) Is patient on ventilator? No Is Patient Ambulatory and/or Out of Bed Yes REE-([place]-St. or-ambulatory/OOB) [ 2062.775 NUTR.MSJOOB] Kcal/Kg value to use for calculation 16 Approximate Energy Requirements Using 1472 kcal/Kg Calculation Used for Recommendations Kcal/kg Additional Notes Protein: (0.8-1g/kg AdjBW: 76kg) 61-76g Fluid: 1 ml/kcal Nutrition Intervention Change Diet Order: Continue Add Supplement/Snack (indicate name/kcal Ensure Enlive TID /protein ) Provides kCal: 1,050 Provides Protein (gm) 60 Goal #1 Meet at least 75% of protein and kcal needs via PO and ONS intakes Anticipated Discharge Needs: Regular Follow-Up By: 01/12/21 Additional Comments F/u: stable intakes
--- NOTE | 2021-01-09 16:47 | Progress Note ---
Assessment and Plan Cultures: COVID PCR positive A/P: 45 yo F now with: #Severe COVID-19 pneumonia: Patient presented with a week of symptoms, chest x- ray with diffuse bilateral infiltrates, admission O2 sats 89% on room air. Inflammatory markers elevated #Acute hypoxemic respiratory failure: Likely secondary to COVID-19 infection. Currently on 10L NC #Morbid obesity Recs: -Dexamethasone 6 mg IV/PO daily for 10 days -Completed Remdesivir. -Obtain q48-72h inflammatory markers - ferritin, Ddimer, CRP, LDH -Procalcitonin low, no need for antibiotics -Anticoagulation per hospital protocol -Proning as able Thank you for the consult, we will continue to follow. Alanna Wallis MD [facility] O: [phone] F: [phone] Subjective Date of service: 01/09/21 Interval history: Afebrile, no acute change. Cultures remain negative. Currently on 10 L nasal cannula. Imaging personally reviewed: Duplex ultrasound: No DVT. Objective - Exam Narrative Exam: Physical exam deferred to reduce risk of transmission of COVID-19. Please refer to primary team's note. - Constitutional Vitals: Vital Signs Temp Pulse Resp BP Pulse Ox 98.5 F 91 H 30 H 111/74 99 01/09/21 12:00 01/09/21 15:00 01/09/21 15:00 01/09/21 15:00 01/09/21 15:00 Temperature -Last 24 Hours Temperature 98.5 F Temperature 98.4 F Temperature 98.6 F Temperature 98.6 F Temperature 98.4 F - Labs CBC & Chem 7: 12/31/20 13:06 01/04/21 05:09
[2021-01-09] MEDS: BENZONATATE 100 MG CAP PO PRN (22:30)
[2021-01-09] MEDS: ALPRAZolam 0.25 MG TAB PO PRN (22:31)
[2021-01-10] MEDS: ZINC SULFATE 220 MG CAP PO SCH ×2 (10:15→21:52)
[2021-01-10] MEDS: ASCORBIC ACID 500 MG TAB PO SCH ×2 (10:15→21:53)
[2021-01-10] MEDS: FAMOTIDINE 20 MG TAB PO SCH ×2 (10:15→21:53)
[2021-01-10] MEDS: guaiFENesin ER 600 MG TAB PO SCH ×2 (10:15→21:53)
[2021-01-10] MEDS: ENOXAPARIN 100 MG/1 ML INJ SUB-Q SCH ×2 (10:16→21:52)
[2021-01-10] MEDS: dexAMETHasone 4 MG/ML VIAL IV SCH (10:16)
--- NOTE | 2021-01-10 11:55 | Progress Note ---
Assessment and Plan Assessment and plan: 45-year-old morbidly obese female patient was admitted through emergency room with fever generalized body pains admitted as PUI Kumar PCR is tested positive, patient is evaluated by ID and is receiving tr eatment per COVID-19 guidelines. --Acute respiratory failure with hypoxia/severe COVID-19 pneumonia Current Visit: Yes Status: Acute Patient on 15 L high flow nasal cannula oxygen Wean as tolerated, prone positioning Patient is requiring high flow nasal cannula HFNC 15 L/100% FiO2/91% O2 sats And is critically ill with severe Covid 19 pneumonia. Very high inflammatory markers markers --Severe COVID-19 virus infection; solation precautions contact and droplet Patient is currently requiring 15 L high flow nasal cannula oxygen Severely hypoxemic, wean as tolerated Dexamethasone 8 mg IV daily total 10 doses Remdesivir per protocol total 5 doses Prone positioning Check inflammatory markers Home O2 evaluation Supportive medications zinc, ascorbic acid, vitamin D3 ID evaluation noted and appreciated We will closely monitor the patient and adjust the management as needed Plan of care reviewed with the patient and her nurse Patient is critically ill with very poor prognosis , severe hypoxia requiring high flow nasal cannula oxygen, severe COVID-19 pneumonia Very high D-dimers requiring empiric anticoagulation The high probability of a clinically significant, sudden or life threatening deterioration of the multiple systems [cardiology/pulm, infectious diseases, COVID-19] system(s) required my full and direct attention, intervention and personal management. The aggregate critical care time was [35] minutes. This time is in addition to time spent performing reported procedures but includes the following: [x] Data Review and interpretation [x] Patient assessment and monitoring of vital signs [x] Documentation [x] Medication orders and management --Very high-dimers;> 4000, check CTA chest to rule out PE, lower extremity venous Doppler to rule out DVT Patient has severe COVID-19 pneumonia, on high flow nasal cannula oxygen, elevated D-dimers Will start Empiric therapeutic anticoagulation with Lovenox -- SIRS (systemic inflammatory response syndrome) Current Visit: Yes Status: Acute Inflammatory markers are elevated LDH is 299 CRP is 2.4 High D-dimers, rule out PE and DVT --Bilateral pneumonia Current Visit: Yes Status: Acute 1 empiric antibiotics, however procalcitonin is normal level No indication for antibiotics, discontinued Oxygen wean as tolerated, home O2 evaluation, follow cultures --Hypokalemia Current Visit: Yes Status: Acute Supplemented -- Anemia Current Visit: Yes Status: Chronic Anemia work-up. Monitor H&H --Hyponatremia/present on admission Current Visit: Yes Status: Acute Improved continue IV fluids normal saline Closely monitor -- Transaminitis Current Visit: Yes Status: Acute Mild, Possibly secondary to Covid --Morbid obesity; BMI 41.3/obesity hypoventilation Current Visit: Yes Status: Chronic Outpatient sleep study to rule out obstructive sleep apnea Patient needs weight reduction when medically stable Diet modification and exercise as tolerated and weight reduction -- DVT prophylaxis Current Visit: Yes Status: Acute On anticoagulation and GI prophylaxis 01/03: Patient has mild to moderate dyspnea at rest and with conversation. She is currently on oxygen O2 and FiO2 60%. She is unable to tolerate exertion. The plan is to continue current regimen and wean O2 as tolerated. She will be monitored closely for worsening of hypoxia or respiratory decompensation. Discussed with the patient and the nursing staff. 01/04: Hypoxia slightly worse, O2 increased from 10 to 15 L today. She has some productive cough which is painful. She is unable to tolerate exertion. She continued have some nausea and diarrhea. However she is able to tolerate Ensure well. Hemodynamically otherwise stable. Mentating well. The plan is to con tinue current regimen and wean O2 as tolerated. We will continue to monitor closely since hypoxia is getting worse. Pulmonary is following. Discussed with the patient and the nursing staff. 01/05/2021; patient continues to require 15 L oxygen In mild distress, Continue current management wean oxygen as tolerated 01/06/2021; patient remains on supplemental nasal cannula oxygen 15 L Wean as tolerated 01/07/2021; patient is on high flow nasal cannula oxygen 28 L/100%/95% FiO2 Very poor prognosis, continue current management 01/08/2021; patient is on high flow nasal cannula oxygen at 15 L/100%/97% O2 sats Wean as tolerated, home O2 evaluation Critically ill with very poor prognosis Patient is aware We will try to contact family to update them patient's condition 01/09/2021; On high flow nasal cannula 10 L, wean as tolerated Patient remains on 15 L of high flow nasal cannula supplemental oxygen Seen and examined the patient at the bedside patient continues to have 10 L of nasal cannula oxygen and O2 sats 94% 01/10/2021; patient is requiring 8 L of nasal cannula oxygen saturating 98% History Interval history: I have seen and examined the patient at the bedside in [facility] Isolation precautions and PPE protocols followed Patient is feeling slightly better, no new complaints currently on 8 L of nasal cannula oxygen saturating 98% Hospitalist Physical - Constitutional Vitals: Temp Pulse Resp BP Pulse Ox 98.3 F 106 H 16 119/78 97 01/10/21 08:00 01/10/21 11:00 01/10/21 11:00 01/10/21 11:00 01/10/21 11:00 General appearance: Present: mild distress, well-nourished, obese (Morbidly obese), other (On 28 L of high flow nasal cannula oxygen) - EENT Eyes: Present: PERRL, EOM intact - Neck Neck: Present: supple, normal ROM - Respiratory Respiratory effort: normal Respiratory: bilateral: diminished, rhonchi, negative: rales, wheezing - Cardiovascular Rhythm: regular Heart Sounds: Present: S1 & S2 - Extremities Extremities: no ischemia, No edema - Abdominal General gastrointestinal: soft, non-tender, non-distended, normal bowel sounds - Integumentary Integumentary: Present: clear, warm - Psychiatric Psychiatric: appropriate mood/affect, cooperative - Neurologic Neurologic: moves all extremities Results - Labs CBC & Chem 7: 12/31/20 13:06 01/04/21 05:09 Labs: Laboratory Last Values WBC 3.7 K/mm3 (4.5-11.0) L 12/31/20 13:06 RBC 4.78 M/mm3 (3.65-5.03) 12/31/20 13:06 Hgb 8.8 gm/dl (10.1-14.3) L 12/31/20 13:06 Hct 29.1 % (30.3-42.9) L 12/31/20 13:06 MCV 61 fl (79-97) L 12/31/20 13:06 MCH 18 pg (28-32) L 12/31/20 13:06 MCHC 30 % (30-34) 12/31/20 13:06 RDW 19.3 % (13.2-15.2) H 12/31/20 13:06 Plt Count 334 K/mm3 (140-440) 12/31/20 13:06 Lymph % (Auto) 17.8 % (13.4-35.0) 12/31/20 13:06 [place] % (Auto) 9.9 % (0.0-7.3) H 12/31/20 13:06 Eos % (Auto) 0.0 % (0.0-4.3) 12/31/20 13:06 Baso % (Auto) 0.5 % (0.0-1.8) 12/31/20 13:06 Lymph # (Auto) 0.7 K/mm3 (1.2-5.4) L 12/31/20 13:06 [place] # (Auto) 0.4 K/mm3 (0.0-0.8) 12/31/20 13:06 Eos # (Auto) 0.0 K/mm3 (0.0-0.4) 12/31/20 13:06 Baso # (Auto) 0.0 K/mm3 (0.0-0.1) 12/31/20 13:06 Seg Neutrophils % 71.8 % (40.0-70.0) H 12/31/20 13:06 Seg Neutrophils # 2.6 K/mm3 (1.8-7.7) 12/31/20 13:06 PT 13.4 Sec. (12.2-14.9) 12/31/20 13:06 INR 0.96 (0.87-1.13) 12/31/20 13:06 APTT 36.1 Sec. (24.2-36.6) 12/31/20 13:06 D-Dimer 4795.16 ng/mlDDU (0-234) H 01/07/21 10:34 Sodium 138 mmol/L (137-145) 01/04/21 05:09 Potassium 4.5 mmol/L (3.6-5.0) 01/04/21 05:09 Chloride 104.5 mmol/L (98-107) 01/04/21 05:09 Carbon Dioxide 24 mmol/L (22-30) 01/04/21 05:09 Anion Gap 14 mmol/L 01/04/21 05:09 BUN 15 mg/dL (7-17) 01/04/21 05:09 Creatinine 0.5 mg/dL (0.6-1.2) L 01/04/21 05:09 Estimated GFR > 60 ml/min 01/04/21 05:09 BUN/Creatinine Ratio 30 % 01/04/21 05:09 Glucose 114 mg/dL (65-100) H 01/04/21 05:09 Calcium 8.6 mg/dL (8.4-10.2) 01/04/21 05:09 Magnesium 2.10 mg/dL (1.7-2.3) 12/31/20 13:06 Ferritin 41.6 ng/mL (10.0-200.0) 01/07/21 10:34 Total Bilirubin 0.30 mg/dL (0.1-1.2) 01/04/21 05:09 AST 32 units/L (5-40) 01/04/21 05:09 ALT 30 units/L (7-56) 01/04/21 05:09 Alkaline Phosphatase 39 units/L (35-129) 01/04/21 05:09 Lactate Dehydrogenase 399 units/L (91-180) H 01/07/21 10:34 C-Reactive Protein 13.60 mg/dL (0.00-1.30) H 01/07/21 10:34 Total Protein 6.9 g/dL (6.3-8.2) 01/04/21 05:09 Albumin 3.4 g/dL (3.9-5) L 01/04/21 05:09 Albumin/Globulin Ratio 1.0 % 01/04/21 05:09 Procalcitonin < 0.05 ng/mL (<0.15) 12/31/20 13:06 HCG, Quant < 0.500 mIU/mL (0-4) 12/31/20 13:06 Coronavirus (PCR) Positive (Negative) A 01/01/21 Unknown Alegria/IV: Voiding Method External Female Catheter Active Medications - Current Medications Current Medications: Generic Name Dose Route Start Last Admin Trade Name Freq PRN Reason Stop Dose Admin Acetaminophen 650 mg 01/01/21 09:00 01/07/21 22:19 Acetaminophen 325 Mg Tab PO 650 mg Q4H PRN Administration Pain, Mild (1-3) Alprazolam 0.25 mg 01/06/21 17:53 01/09/21 22:31 Alprazolam 0.25 Mg Tab PO 0.25 mg Q8H PRN Administration Anxiety Ascorbic Acid 500 mg 01/01/21 10:00 01/10/21 10:15 Ascorbic Acid 500 Mg Tab PO 500 mg BID FAREED Administration Benzonatate 100 mg 01/03/21 01:09 01/09/21 22:30 Benzonatate 100 Mg Cap PO 100 mg Q8HR PRN Administration Cough Dexamethasone 8 mg 01/02/21 10:00 01/10/21 10:16 Dexamethasone 4 Mg/Ml Vial IV 01/11/21 10:01 8 mg DAILY FAREED Administration Enoxaparin Sodium 100 mg 01/07/21 22:00 01/10/21 10:16 Enoxaparin 100 Mg/1 Ml Inj 1 mg/kg (90 mg) 100 mg SUB-Q Administration Q12HR FAREED Protocol Famotidine 20 mg 01/01/21 10:00 01/10/21 10:15 Famotidine 20 Mg Tab PO 20 mg BID FAREED Administration Guaifenesin 600 mg 01/03/21 02:00 01/10/21 10:15 Guaifenesin Er 600 Mg Tab PO 600 mg BID FAREED Administration Zinc Sulfate 220 mg 01/01/21 10:00 01/10/21 10:15 Zinc Sulfate 220 Mg Cap PO 220 mg BID FAREED Administration Nutrition/Malnutrition Assess - Dietary Evaluation Nutrition/Malnutrition Findings: Nutrition Notes Start: 01/04/21 10:49 Freq: Status: Active Protocol: Document 01/09/21 11:27 (Rec: 01/09/21 11:30 [id number]) Nutrition Notes Initial or Follow up Reassessment Current Diagnosis Respiratory Failure Other Pertinent Diagnosis SIRS, Pneu, COVID-19, transaminitis, anemia Current Diet regular Labs/Tests Reviewed Pertinent Medications Decadron Height 5 ft 6 in Weight 92 kg [facility] Body Weight (kg) 59.09 BMI 32.7 Weight Status Obese Subjective/Other Information Pt not answering phone. RN reports pt continues to drink ONS from home (3 daily) and is eating 25-30% of meals since taste has improved. Percent of energy/protein needs met: 100%/100% Burn Absent Trauma Absent GI Symptoms None Current % PO Poor (25-49%) Minimum of two criteria No #1 Nutrition Diagnosis Inadequate oral intake As Evidenced by Signs and Symptoms pt eating 25-30% of meals Diagnosis Progress(for reassessment Improved documentation) Is patient on ventilator? No Is Patient Ambulatory and/or Out of Bed Yes REE-([facility]-ambulatory/OOB) [ 2.775 NUTR.MSJOOB] Kcal/Kg value to use for calculation 16 Approximate Energy Requirements Using 1472 kcal/Kg Calculation Used for Recommendations Kcal/kg Additional Notes Protein: (0.8-1g/kg AdjBW: 76kg) 61-76g Fluid: 1 ml/kcal Nutrition Intervention Change Diet Order: Continue Add Supplement/Snack (indicate name/kcal Ensure Enlive TID /protein ) Provides kCal: 1,050 Provides Protein (gm) 60 Goal #1 Meet at least 75% of protein and kcal needs via PO and ONS intakes Anticipated Discharge Needs: Regular Follow-Up By: 01/12/21 Additional Comments F/u: stable intakes
--- NOTE | 2021-01-10 15:17 | Cat Scan Report ---
CTA CHEST WITH CONTRAST INDICATION / CLINICAL INFORMATION: Covid/elevated D-dimers/hypoxia/obese/rule out PE. TECHNIQUE: Axial CT images were obtained through the chest after injection of IV contrast. 3 plane NM P and/or 3D reconstructions were produced. All CT scans at this location are performed using CT dose reduction for ALARA by means of automated exposure control. COMPARISON: None available. FINDINGS: PULMONARY ARTERIES: No pulmonary emboli. THORACIC AORTA: No significant abnormality. HEART: No significant abnormality. CORONARY ARTERY CALCIFICATION: None. MEDIASTINUM / KRISH: Multiple calcified and noncalcified thyroid nodules. The largest is at the left l obe measuring 2 cm. PLEURA: No pleural effusion. No pneumothorax. LUNGS: Extensive bilateral pneumonia. ADDITIONAL FINDINGS: None. UPPER ABDOMEN: No acute findings. SKELETAL STRUCTURES: No significant osseous abnormality. IMPRESSION: 1. No CT evidence for pulmonary embolism. 2. Extensive bilateral pneumonia. 3. Incidental thyroid nodules. Incidental thyroid nodule in the left lobe measuring 2 cm in a patient equal to or over age 35. Recom mendation based on ACR guidelines: Diagnostic thyroid ultrasound. Signer Name: Jovon Berg MD Signed: 01/10/2021 3:12 PM Workstation Name: [id number]
--- NOTE | 2021-01-10 16:38 | Progress Note ---
Assessment and Plan Cultures: COVID PCR positive A/P: 45 yo F now with: #Severe COVID-19 pneumonia: Patient presented with a week of symptoms, chest x- ray with diffuse bilateral infiltrates, admission O2 sats 89% on room air. Inflammatory markers elevated #Acute hypoxemic respiratory failure: Likely secondary to COVID-19 infection. Currently on 8L NC #Morbid obesity Recs: -Dexamethasone 6 mg IV/PO daily for 10 days -Completed Remdesivir. -Obtain q48-72h inflammatory markers - ferritin, Ddimer, CRP, LDH -Procalcitonin low, no need for antibiotics -Anticoagulation per hospital protocol -Proning as able Thank you for the consult, we will sign off. Please call with questions. No need for infectious disease follow-up. Alanna Wallis MD [facility] ([facility] O: [phone] F: [phone] Subjective Date of service: 01/10/21 Interval history: Afebrile, no acute change. Currently on 8 L salter nasal cannula. Objective - Exam Narrative Exam: Physical exam deferred to reduce risk of transmission of COVID-19. Please refer to primary team's note. - Constitutional Vitals: Vital Signs Temp Pulse Resp BP Pulse Ox 98.3 F 84 18 122/90 98 01/10/21 08:00 01/10/21 16:00 01/10/21 16:00 01/10/21 16:00 01/10/21 16:00 Temperature -Last 24 Hours Temperature 98.3 F Temperature 97.9 F Temperature 97.9 F Temperature 98.7 F - Labs CBC & Chem 7: 12/31/20 13:06 01/04/21 05:09
[2021-01-10] MEDS: ALPRAZolam 0.25 MG TAB PO PRN (21:52)
[2021-01-10] MEDS: ACETAMINOPHEN 325 MG TAB PO PRN (21:53)
[2021-01-10] MEDS: BENZONATATE 100 MG CAP PO PRN (21:53)
[2021-01-11] MEDS: FAMOTIDINE 20 MG TAB PO SCH ×2 (10:16→22:36)
[2021-01-11] MEDS: dexAMETHasone 4 MG/ML VIAL IV SCH (10:16)
[2021-01-11] MEDS: ASCORBIC ACID 500 MG TAB PO SCH ×2 (10:16→22:36)
[2021-01-11] MEDS: ZINC SULFATE 220 MG CAP PO SCH ×2 (10:16→22:36)
[2021-01-11] MEDS: ENOXAPARIN 100 MG/1 ML INJ SUB-Q SCH (10:16)
[2021-01-11] MEDS: guaiFENesin ER 600 MG TAB PO SCH ×2 (10:16→22:36)
--- NOTE | 2021-01-11 13:01 | Progress Note ---
Assessment and Plan Assessment and plan: 45-year-old morbidly obese female patient was admitted through emergency room with fever generalized body pains admitted as PUI Kumar PCR is tested positive, patient is evaluated by ID and is receiving tr eatment per COVID-19 guidelines. --Acute respiratory failure with hypoxia/severe COVID-19 pneumonia Current Visit: Yes Status: Acute Patient on 4 to 6 L of nasal cannula oxygen Wean as tolerated, prone positioning Patient feels slightly better wean oxygen as tolerated --Severe COVID-19 virus infection; solation precautions contact and droplet Today patient is on 4 to 6 L of nasal cannula oxygen Home O2 evaluation prior to discharge 10 dose of dexamethasone completed 5 doses of remdesivir completed Prone positioning Check inflammatory markers Home O2 evaluation Supportive medications zinc, ascorbic acid, vitamin D3 ID evaluation noted and appreciated Continue supportive care Patient is critically ill with very poor prognosis , severe hypoxia requiring high flow nasal cannula oxygen, severe COVID-19 pneumonia Very high D-dimers requiring empiric anticoagulation The high probability of a clinically significant, sudden or life threatening deterioration of the multiple systems [cardiology/pulm, infectious diseases, COVID-19] system(s) required my full and direct attention, intervention and personal management. The aggregate critical care time was [35] minutes. This time is in addition to time spent performing reported procedures but includes the following: [x] Data Review and interpretation [x] Patient assessment and monitoring of vital signs [x] Documentation [x] Medication orders and management --Very high-dimers;> 4000, check CTA chest to rule out PE, lower extremity venous Doppler to rule out DVT Patient has severe COVID-19 pneumonia, on high flow nasal cannula oxygen, elevated D-dimers Will start Empiric therapeutic anticoagulation with Lovenox -- SIRS (systemic inflammatory response syndrome) Current Visit: Yes Status: Acute Inflammatory markers are elevated LDH is 299 CRP is 2.4 High D-dimers, rule out PE and DVT --Bilateral pneumonia Current Visit: Yes Status: Acute 1 empiric antibiotics, however procalcitonin is normal level No indication for antibiotics, discontinued Oxygen wean as tolerated, home O2 evaluation, follow cultures --Hypokalemia Current Visit: Yes Status: Acute Supplemented -- Anemia Current Visit: Yes Status: Chronic Anemia work-up. Monitor H&H --Hyponatremia/present on admission Current Visit: Yes Status: Acute Improved continue IV fluids normal saline Closely monitor -- Transaminitis Current Visit: Yes Status: Acute Mild, Possibly secondary to Covid --Morbid obesity; BMI 35.0/obesity hypoventilation Current Visit: Yes Status: Chronic Outpatient sleep study to rule out obstructive sleep apnea Patient needs weight reduction when medically stable Diet modification and exercise as tolerated and weight reduction -- DVT prophylaxis Current Visit: Yes Status: Acute On anticoagulation and GI prophylaxis Closely monitor the patient and adjust management as needed Plan of care reviewed with the patient and her nurse Patient is stable to be transferred out of [facility] today to medical floor Recommend PT OT, discharge planning, home O2 evaluation prior to discharge Possible discharge in 1 to 2 days if stable 01/03: Patient has mild to moderate dyspnea at rest and with conversation. She is currently on oxygen O2 and FiO2 60%. She is unable to tolerate exertion. The plan is to continue current regimen and wean O2 as tolerated. She will be monitored closely for worsening of hypoxia or respiratory decompensation. Discussed with the patient and the nursing staff. 01/04: Hypoxia slightly worse, O2 increased from 10 to 15 L today. She has some productive cough which is painful. She is unable to tolerate exertion. She continued have some nausea and diarrhea. However she is able to tolerate Ensure well. Hemodynamically otherwise stable. Mentating well. The plan is to continue current regimen and wean O2 as tolerated. We will continue to monitor closely since hypoxia is getting worse. Pulmonary is following. Discussed with the patient and the nursing staff. 01/05/2021; patient continues to require 15 L oxygen In mild distress, Continue current management wean oxygen as tolerated 01/06/2021; patient remains on supplemental nasal cannula oxygen 15 L Wean as tolerated 01/07/2021; patient is on high flow nasal cannula oxygen 28 L/100%/95% FiO2 Very poor prognosis, continue current management 01/08/2021; patient is on high flow nasal cannula oxygen at 15 L/100%/97% O2 sats Wean as tolerated, home O2 evaluation Critically ill with very poor prognosis Patient is aware We will try to contact family to update them patient's condition 01/09/2021; On high flow nasal cannula 10 L, wean as tolerated Wean as tolerated 01/10/2021; patient feels slightly better. On 8 L of nasal cannula oxygen Wean as tolerated, patient is stable to be transferred out of [facility] if bed is available on the floor 01/11/2021; patient is requiring 4-6 L of nasal cannula oxygen saturating 98% Patient is stable to be transferred out of [facility] to medical floor We will also request PT evaluation and treat Possible discharge in 1 to 2 days if stable DC planning per case management History Interval history: I have seen and examined the patient at the bedside this morning in [facility] Isolation precautions and PPE protocols strictly observed per COVID-19 guidelines Patient feels slightly better currently on 4 to 6 L of nasal cannula oxygen saturating well Patient complains of generalized weakness Vital signs noted Hospitalist Physical - Constitutional Vitals: Temp Pulse Resp BP Pulse Ox 98.2 F 101 H 27 H 122/75 97 01/11/21 12:00 01/11/21 12:31 01/11/21 12:31 01/11/21 12:31 01/11/21 12:31 General appearance: Present: no acute distress, well-nourished, obese (Morbidly obese), other (On 28 L of high flow nasal cannula oxygen) - EENT Eyes: Present: PERRL, EOM intact - Neck Neck: Present: supple, normal ROM - Respiratory Respiratory effort: normal Respiratory: bilateral: diminished, rhonchi, negative: rales, wheezing - Cardiovascular Rhythm: regular Heart Sounds: Present: S1 & S2 - Extremities Extremities: no ischemia, No edema - Abdominal General gastrointestinal: soft, non-tender, non-distended, normal bowel sounds - Integumentary Integumentary: Present: clear, warm - Psychiatric Psychiatric: appropriate mood/affect, cooperative - Neurologic Neurologic: CNII-XII intact, moves all extremities Results - Labs CBC & Chem 7: 01/11/21 13:29 01/11/21 13:29 Labs: Laboratory Last Values WBC 3.7 K/mm3 (4.5-11.0) L 12/31/20 13:06 RBC 4.78 M/mm3 (3.65-5.03) 12/31/20 13:06 Hgb 8.8 gm/dl (10.1-14.3) L 12/31/20 13:06 Hct 29.1 % (30.3-42.9) L 12/31/20 13:06 MCV 61 fl (79-97) L 12/31/20 13:06 MCH 18 pg (28-32) L 12/31/20 13:06 MCHC 30 % (30-34) 08/29/21 13:06 RDW 19.3 % (13.2-15.2) H 12/31/20 13:06 Plt Count 334 K/mm3 (140-440) 12/31/20 13:06 Lymph % (Auto) 17.8 % (13.4-35.0) 12/31/20 13:06 [place] % (Auto) 9.9 % (0.0-7.3) H 12/31/20 13:06 Eos % (Auto) 0.0 % (0.0-4.3) 12/31/20 13:06 Baso % (Auto) 0.5 % (0.0-1.8) 12/31/20 13:06 Lymph # (Auto) 0.7 K/mm3 (1.2-5.4) L 12/31/20 13:06 [place] # (Auto) 0.4 K/mm3 (0.0-0.8) 12/31/20 13:06 Eos # (Auto) 0.0 K/mm3 (0.0-0.4) 12/31/20 13:06 Baso # (Auto) 0.0 K/mm3 (0.0-0.1) 12/31/20 13:06 Seg Neutrophils % 71.8 % (40.0-70.0) H 12/31/20 13:06 Seg Neutrophils # 2.6 K/mm3 (1.8-7.7) 12/31/20 13:06 PT 13.4 Sec. (12.2-14.9) 12/31/20 13:06 INR 0.96 (0.87-1.13) 12/31/20 13:06 APTT 36.1 Sec. (24.2-36.6) 12/31/20 13:06 D-Dimer 4795.16 ng/mlDDU (0-234) H 01/07/21 10:34 Sodium 138 mmol/L (137-145) 01/04/21 05:09 Potassium 4.5 mmol/L (3.6-5.0) 01/04/21 05:09 Chloride 104.5 mmol/L (98-107) 01/04/21 05:09 Carbon Dioxide 24 mmol/L (22-30) 01/04/21 05:09 Anion Gap 14 mmol/L 01/04/21 05:09 BUN 15 mg/dL (7-17) 01/04/21 05:09 Creatinine 0.5 mg/dL (0.6-1.2) L 01/04/21 05:09 Estimated GFR > 60 ml/min 01/04/21 05:09 BUN/Creatinine Ratio 30 % 01/04/21 05:09 Glucose 114 mg/dL (65-100) H 01/04/21 05:09 Calcium 8.6 mg/dL (8.4-10.2) 01/04/21 05:09 Magnesium 2.10 mg/dL (1.7-2.3) 12/31/20 13:06 Ferritin 41.6 ng/mL (10.0-200.0) 01/07/21 10:34 Total Bilirubin 0.30 mg/dL (0.1-1.2) 01/04/21 05:09 AST 32 units/L (5-40) 01/04/21 05:09 ALT 30 units/L (7-56) 01/04/21 05:09 Alkaline Phosphatase 39 units/L (35-129) 01/04/21 05:09 Lactate Dehydrogenase 399 units/L (91-180) H 01/07/21 10:34 C-Reactive Protein 13.60 mg/dL (0.00-1.30) H 01/07/21 10:34 Total Protein 6.9 g/dL (6.3-8.2) 01/04/21 05:09 Albumin 3.4 g/dL (3.9-5) L 01/04/21 05:09 Albumin/Globulin Ratio 1.0 % 01/04/21 05:09 Procalcitonin < 0.05 ng/mL (<0.15) 12/31/20 13:06 HCG, Quant < 0.500 mIU/mL (0-4) 12/31/20 13:06 Coronavirus (PCR) Positive (Negative) A 01/01/21 Unknown Alegria/IV: Voiding Method External Female Catheter Active Medications - Current Medications Current Medications: Generic Name Dose Route Start Last Admin Trade Name Freq PRN Reason Stop Dose Admin Acetaminophen 650 mg 01/01/21 09:00 01/10/21 21:53 Acetaminophen 325 Mg Tab PO 650 mg Q4H PRN Administration Pain, Mild (1-3) Alprazolam 0.25 mg 01/06/21 17:53 01/10/21 21:52 Alprazolam 0.25 Mg Tab PO 0.25 mg Q8H PRN Administration Anxiety Ascorbic Acid 500 mg 01/01/21 10:00 01/11/21 10:16 Ascorbic Acid 500 Mg Tab PO 500 mg BID FAREED Administration Benzonatate 100 mg 01/03/21 01:09 01/10/21 21:53 Benzonatate 100 Mg Cap PO 100 mg Q8HR PRN Administration Cough Enoxaparin Sodium 100 mg 01/07/21 22:00 01/11/21 10:16 Enoxaparin 100 Mg/1 Ml Inj 1 mg/kg (90 mg) 100 mg SUB-Q Administration Q12HR [facility] Protocol Famotidine 20 mg 01/01/21 10:00 01/11/21 10:16 Famotidine 20 Mg Tab PO 20 mg BID FAREED Administration Guaifenesin 600 mg 01/03/21 02:00 01/11/21 10:16 Guaifenesin Er 600 Mg Tab PO 600 mg BID FAREED Administration Zinc Sulfate 220 mg 01/01/21 10:00 01/11/21 10:16 Zinc Sulfate 220 Mg Cap PO 220 mg BID FAERED Administration Nutrition/Malnutrition Assess - Dietary Evaluation Nutrition/Malnutrition Findings: Nutrition Notes Start: 01/04/21 10:49 Freq: Status: Active Protocol: Document 01/09/21 11:27 (Rec: 01/09/21 11:30 [id number]) Nutrition Notes Initial or Follow up Reassessment Current Diagnosis Respiratory Failure Other Pertinent Diagnosis SIRS, Pneu, COVID-19, transaminitis, anemia Current Diet regular Labs/Tests Reviewed Pertinent Medications Decadron Height 5 ft 6 in Weight 92 kg [place] Body Weight (kg) 59.09 BMI 32.7 Weight Status Obese Subjective/Other Information Pt not answering phone. RN reports pt continues to drink ONS from home (3 daily) and is eating 25-30% of meals since taste has improved. Percent of energy/protein needs met: 100%/100% Burn Absent Trauma Absent GI Symptoms None Current % PO Poor (25-49%) Minimum of two criteria No #1 Nutrition Diagnosis Inadequate oral intake As Evidenced by Signs and Symptoms pt eating 25-30% of meals Diagnosis Progress(for reassessment Improved documentation) Is patient on ventilator? No Is Patient Ambulatory and/or Out of Bed Yes REE-([place] or-ambulatory/OOB) [ NUTR.MSJOOB] Kcal/Kg value to use for calculation 16 Approximate Energy Requirements Using 1472 kcal/Kg Calculation Used for Recommendations Kcal/kg Additional Notes Protein: (0.8-1g/kg AdjBW: 76kg) 61-76g Fluid: 1 ml/kcal Nutrition Intervention Change Diet Order: Continue Add Supplement/Snack (indicate name/kcal Ensure Enlive TID /protein ) Provides kCal: 1,050 Provides Protein (gm) 60 Goal #1 Meet at least 75% of protein and kcal needs via PO and ONS intakes Anticipated Discharge Needs: Regular Follow-Up By: 01/12/21 Additional Comments F/u: stable intakes
[2021-01-11 13:58] LABS: Mean Corpuscular HGB Conc 30 % (30-34); Platelet Count 698 K/mm3 (140-440); Red Blood Count 5.37 M/mm3 (3.65-5.03); Red Cell Distribution Width 19.8 % (13.2-15.2)
[2021-01-11 13:59] LABS: Hematocrit 33.1 % (30.3-42.9); Hemoglobin 9.8 gm/dl (10.1-14.3); Mean Corpuscular Volume 62 fl (79-97)
[2021-01-11 14:18] LABS: C-Reactive Protein 1.4 mg/dL (0.00-1.30)
[2021-01-11 14:52] LABS: INR 1.07 (0.87-1.13)
[2021-01-11 14:53] LABS: Partial Thromboplastin Time 33.8 Sec. (24.2-36.6)
[2021-01-11] MEDS: APIXABAN 5 MG TAB PO SCH (22:36)
--- NOTE | 2021-01-12 08:11 | Progress Note ---
Assessment and Plan Assessment and plan: 45-year-old morbidly obese female patient was admitted through emergency room with fever generalized body pains admitted as PUI Kumar PCR is tested positive, patient is evaluated by ID and is receiving tr eatment per COVID-19 guidelines. --Acute respiratory failure with hypoxia/severe COVID-19 pneumonia Current Visit: Yes Status: Acute Patient on 6 L of nasal cannula oxygen today Wean as tolerated, prone positioning Home O2 evaluation, home O2 set up as needed --Severe COVID-19 virus infection; solation precautions contact and droplet Today patient is on 4 to 6 L of nasal cannula oxygen Home O2 evaluation prior to discharge 10 dose of dexamethasone completed 5 doses of remdesivir completed Prone positioning Check inflammatory markers Home O2 evaluation Supportive medications zinc, ascorbic acid, vitamin D3 ID evaluation noted and appreciated Continue supportive care --Very high-dimers;> 4000, CTA chest negative for PE, lower extremity Doppler negative DVT However patient has severe COVID-19 pneumonia, needed very high flow nasal cannula oxygen, On empiric therapeutic anticoagulation with Lovenox, transition to Eliquis -- SIRS (systemic inflammatory response syndrome) Current Visit: Yes Status: Acute Due to COVID-19 --Bilateral pneumonia Current Visit: Yes Status: Acute Procalcitonin is normal, no antibiotics per ID --Hypokalemia Current Visit: Yes Status: Acute Resolved -- Anemia Current Visit: Yes Status: Chronic Low stable hemoglobin 9.8 --Hyponatremia/present on admission Current Visit: Yes Status: Acute Resolved -- Transaminitis Current Visit: Yes Status: Acute Secondary to COVID-19, trending down --Morbid obesity; BMI 35.0/obesity hypoventilation Current Visit: Yes Status: Chronic Outpatient sleep study to rule out obstructive sleep apnea Patient needs weight reduction when medically stable Diet modification and exercise as tolerated and weight reduction -- DVT prophylaxis; Current Visit: Yes Status: Acute On anticoagulation Closely monitor the patient and adjust management as needed Plan of care reviewed with the patient and her nurse Patient is stable to be transferred out of [facility] today to medical floor Recommend PT OT, discharge planning, home O2 evaluation prior to discharge Possible discharge in 1 to 2 days if stable Daily hospital course: 01/03: Patient has mild to moderate dyspnea at rest and with conversation. She is currently on oxygen O2 and FiO2 60%. She is unable to tolerate exertion. The plan is to continue current regimen and wean O2 as tolerated. She will be monitored closely for worsening of hypoxia or respiratory decompensation. Discussed with the patient and the nursing staff. 01/04: Hypoxia slightly worse, O2 increased from 10 to 15 L today. She has some productive cough which is painful. She is unable to tolerate exertion. She continued have some nausea and diarrhea. However she is able to tolerate Ensure well. Hemodynamically otherwise stable. Mentating well. The plan is to continue current regimen and wean O2 as tolerated. We will continue to monitor closely since hypoxia is getting worse. Pulmonary is following. Discussed with the patient and the nursing staff. 01/05/2021; patient continues to require 15 L oxygen In mild distress, Continue current management wean oxygen as tolerated 01/06/2021; patient remains on supplemental nasal cannula oxygen 15 L Wean as tolerated 01/07/2021; patient is on high flow nasal cannula oxygen 28 L/100%/95% FiO2 Very poor prognosis, continue current management 01/08/2021; patient is on high flow nasal cannula oxygen at 15 L/100%/97% O2 sats Wean as tolerated, home O2 evaluation Critically ill with very poor prognosis Patient is aware We will try to contact family to update them patient's condition 01/09/2021; On high flow nasal cannula 10 L, wean as tolerated Wean as tolerated 01/10/2021; patient feels slightly better. On 8 L of nasal cannula oxygen Wean as tolerated, patient is stable to be transferred out of [facility] if bed is available on the floor 01/11/2021; patient is requiring 4-6 L of nasal cannula oxygen saturating 98% Patient is stable to be transferred out of [facility] to medical floor We will also request PT evaluation and treat Possible discharge in 1 to 2 days if stable 01/12/21; Patient is requiring 6 L nasal cannula O2 Resting room air, 6-minute walk room air O2 sat evaluation Home O2 set up as needed, PT evaluation and discharge needs Possible discharge in 1 to 2 days if stable Disposition; home O2 evaluation, follow PT recommendations DC in 1 to 2 days , DC planning per case management History Interval history: I seen and examined the patient at the bedside Isolation precautions and PPE protocols followed Patient feels better saturating well on 6 L nasal cannula oxygen Wean as tolerated no new complaints Patient denies any chest pain or shortness of breath Vital signs noted Hospitalist Physical - Constitutional Vitals: Temp Pulse Resp BP Pulse Ox 98.3 F 93 H 20 120/90 95 01/12/21 04:39 01/12/21 04:39 01/12/21 04:39 01/12/21 04:39 01/12/21 04:39 General appearance: Present: no acute distress, well-nourished, obese (Morbidly obese), other (On 6 L nasal cannula oxygen) - EENT Eyes: Present: PERRL, EOM intact - Neck Neck: Present: supple, normal ROM - Respiratory Respiratory effort: normal Respiratory: bilateral: diminished, rhonchi, negative: rales, wheezing - Cardiovascular Rhythm: regular Heart Sounds: Present: S1 & S2 - Extremities Extremities: no ischemia, No edema - Abdominal General gastrointestinal: soft, non-tender, non-distended, normal bowel sounds - Integumentary Integumentary: Present: clear, warm - Psychiatric Psychiatric: appropriate mood/affect, cooperative - Neurologic Neurologic: moves all extremities Results - Labs CBC & Chem 7: 01/11/21 13:29 01/11/21 13:29 Labs: Laboratory Last Values WBC 11.2 K/mm3 (4.5-11.0) H 01/11/21 13:29 RBC 5.37 M/mm3 (3.65-5.03) H 01/11/21 13:29 Hgb 9.8 gm/dl (10.1-14.3) L 01/11/21 13:29 Hct 33.1 % (30.3-42.9) 01/11/21 13:29 MCV 62 fl (79-97) L 01/11/21 13:29 MCH 18 pg (28-32) L 01/11/21 13:29 MCHC 30 % (30-34) 01/11/21 13:29 RDW 19.8 % (13.2-15.2) H 01/11/21 13:29 Plt Count 698 K/mm3 (140-440) H 01/11/21 13:29 Lymph % (Auto) 17.8 % (13.4-35.0) 12/31/20 13:06 [place] % (Auto) 9.9 % (0.0-7.3) H 12/31/20 13:06 Eos % (Auto) 0.0 % (0.0-4.3) 12/31/20 13:06 Baso % (Auto) 0.5 % (0.0-1.8) 12/31/20 13:06 Lymph # (Auto) 0.7 K/mm3 (1.2-5.4) L 12/31/20 13:06 [place] # (Auto) 0.4 K/mm3 (0.0-0.8) 12/31/20 13:06 Eos # (Auto) 0.0 K/mm3 (0.0-0.4) 12/31/20 13:06 Baso # (Auto) 0.0 K/mm3 (0.0-0.1) 12/31/20 13:06 Seg Neutrophils % 71.8 % (40.0-70.0) H 12/31/20 13:06 Seg Neutrophils # 2.6 K/mm3 (1.8-7.7) 12/31/20 13:06 PT 14.4 Sec. (12.2-14.9) 01/11/21 13:29 INR 1.07 (0.87-1.13) 01/11/21 13:29 APTT 33.8 Sec. (24.2-36.6) 01/11/21 13:29 D-Dimer 943.90 ng/mlDDU (0-234) H 01/11/21 13:29 Sodium 138 mmol/L (137-145) 01/04/21 05:09 Potassium 4.5 mmol/L (3.6-5.0) 01/04/21 05:09 Chloride 104.5 mmol/L (98-107) 01/04/21 05:09 Carbon Dioxide 24 mmol/L (22-30) 01/04/21 05:09 Anion Gap 14 mmol/L 01/04/21 05:09 BUN 15 mg/dL (7-17) 01/04/21 05:09 Creatinine 0.5 mg/dL (0.6-1.2) L 01/11/21 13:29 Estimated GFR > 60 ml/min 01/11/21 13:29 BUN/Creatinine Ratio 30 % 01/04/21 05:09 Glucose 114 mg/dL (65-100) H 01/04/21 05:09 Calcium 8.6 mg/dL (8.4-10.2) 01/04/21 05:09 Magnesium 2.10 mg/dL (1.7-2.3) 12/31/20 13:06 Ferritin 18.8 ng/mL (10.0-200.0) 01/11/21 13:29 Total Bilirubin 0.30 mg/dL (0.1-1.2) 01/04/21 05:09 AST 32 units/L (5-40) 01/04/21 05:09 ALT 30 units/L (7-56) 01/04/21 05:09 Alkaline Phosphatase 39 units/L (35-129) 01/04/21 05:09 Lactate Dehydrogenase 292 units/L (91-180) H 01/11/21 13:29 C-Reactive Protein 1.40 mg/dL (0.00-1.30) H 01/11/21 13:29 Total Protein 6.9 g/dL (6.3-8.2) 01/04/21 05:09 Albumin 3.4 g/dL (3.9-5) L 01/04/21 05:09 Albumin/Globulin Ratio 1.0 % 01/04/21 05:09 Procalcitonin < 0.05 ng/mL (<0.15) 12/31/20 13:06 HCG, Quant < 0.500 mIU/mL (0-4) 12/31/20 13:06 Coronavirus (PCR) Positive (Negative) A 01/01/21 Unknown Alegria/IV: Voiding Method External Female Catheter Active Medications - Current Medications Current Medications: Generic Name Dose Route Start Last Admin Trade Name Freq PRN Reason Stop Dose Admin Acetaminophen 650 mg 01/01/21 09:00 01/10/21 21:53 Acetaminophen 325 Mg Tab PO 650 mg Q4H PRN Administration Pain, Mild (1-3) Alprazolam 0.25 mg 01/06/21 17:53 01/10/21 21:52 Alprazolam 0.25 Mg Tab PO 0.25 mg Q8H PRN Administration Anxiety Apixaban 5 mg 01/11/21 22:00 01/11/21 22:36 Apixaban 5 Mg Tab PO 5 mg Q12HR FAREED Administration Protocol Ascorbic Acid 500 mg 01/01/21 10:00 01/11/21 22:36 Ascorbic Acid 500 Mg Tab PO 500 mg BID AFREED Administration Benzonatate 100 mg 01/03/21 01:09 01/10/21 21:53 Benzonatate 100 Mg Cap PO 100 mg Q8HR PRN Administration Cough Famotidine 20 mg 01/01/21 10:00 01/11/21 22:36 Famotidine 20 Mg Tab PO 20 mg BID FAREED Administration Guaifenesin 600 mg 01/03/21 02:00 01/11/21 22:36 Guaifenesin Er 600 Mg Tab PO 600 mg BID FAREED Administration Zinc Sulfate 220 mg 01/01/21 10:00 01/11/21 22:36 Zinc Sulfate 220 Mg Cap PO 220 mg BID FAREED Administration Nutrition/Malnutrition Assess - Dietary Evaluation Nutrition/Malnutrition Findings: Nutrition Notes Start: 01/04/21 10:49 Freq: Status: Active Protocol: Document 01/09/21 11:27 (Rec: 01/09/21 11:30 [id number]) Nutrition Notes Initial or Follow up Reassessment Current Diagnosis Respiratory Failure Other Pertinent Diagnosis SIRS, Pneu, COVID-19, transaminitis, anemia Current Diet regular Labs/Tests Reviewed Pertinent Medications Decadron Height 5 ft 6 in Weight 92 kg [place] Body Weight (kg) 59.09 BMI 32.7 Weight Status Obese Subjective/Other Information Pt not answering phone. RN reports pt continues to drink ONS from home (3 daily) and is eating 25-30% of meals since taste has improved. Percent of energy/protein needs met: 100%/100% Burn Absent Trauma Absent GI Symptoms None Current % PO Poor (25-49%) Minimum of two criteria No #1 Nutrition Diagnosis Inadequate oral intake As Evidenced by Signs and Symptoms pt eating 25-30% of meals Diagnosis Progress(for reassessment Improved documentation) Is patient on ventilator? No Is Patient Ambulatory and/or Out of Bed Yes REE-([place]. or-ambulatory/OOB) [ NUTR.MSJOOB] Kcal/Kg value to use for calculation 16 Approximate Energy Requirements Using 1472 kcal/Kg Calculation Used for Recommendations Kcal/kg Additional Notes Protein: (0.8-1g/kg AdjBW: 76kg) 61-76g Fluid: 1 ml/kcal Nutrition Intervention Change Diet Order: Continue Add Supplement/Snack (indicate name/kcal Ensure Enlive TID /protein ) Provides kCal: 1,050 Provides Protein (gm) 60 Goal #1 Meet at least 75% of protein and kcal needs via PO and ONS intakes Anticipated Discharge Needs: Regular Follow-Up By: 01/12/21 Additional Comments F/u: stable intakes
[2021-01-12] MEDS: APIXABAN 5 MG TAB PO SCH ×2 (10:45→21:33)
[2021-01-12] MEDS: ZINC SULFATE 220 MG CAP PO SCH ×2 (10:45→21:33)
[2021-01-12] MEDS: ASCORBIC ACID 500 MG TAB PO SCH ×2 (10:46→21:33)
[2021-01-12] MEDS: guaiFENesin ER 600 MG TAB PO SCH ×2 (10:46→21:32)
[2021-01-12] MEDS: FAMOTIDINE 20 MG TAB PO SCH ×2 (10:46→21:33)
[2021-01-13 03:42] LABS: Hemoglobin 9.7 gm/dl (10.1-14.3); Mean Corpuscular HGB Conc 30 % (30-34); Platelet Count 693 K/mm3 (140-440); Red Blood Count 5.15 M/mm3 (3.65-5.03); Red Cell Distribution Width 19.3 % (13.2-15.2)
[2021-01-13 04:09] LABS: Mean Corpuscular Volume 62 fl (79-97)
--- NOTE | 2021-01-13 08:04 | Discharge Summary ---
Providers - Providers Date of Admission: 01/01/21 09:13 Attending physician: ROMEO RICHARDSON MD 01/02/21 12:51 Consult to Physician [CONS] Routine Comment: Consulting Provider: BUZZ LIU Physician Instructions: Reason For Exam: COVID-19/morbid obesity 01/11/21 13:00 Physical Therapy Evaluation and Treat [CONS] Routine Comment: Reason For Exam: Covid/on oxygen/debility/eval and treat DC needs Primary care physician: STEAMER BLOCKER Hospitalization Condition: Fair Hospital course: 45-year-old morbidly obese female patient was admitted through emergency room with fever generalized body pains admitted as PUI Kumar PCR is tested positive, patient is evaluated by ID and is receiving treatment per COVID-19 guidelines. --Acute respiratory failure with hypoxia/severe COVID-19 pneumonia Current Visit: Yes Status: Acute Patient on 6 L of nasal cannula oxygen today Wean as tolerated, prone positioning Home O2 evaluation, home O2 set up as needed --Severe COVID-19 virus infection; solation precautions contact and droplet Today patient is on 4 to 6 L of nasal cannula oxygen Home O2 evaluation prior to discharge 10 dose of dexamethasone completed 5 doses of remdesivir completed Prone positioning Check inflammatory markers Home O2 evaluation Supportive medications zinc, ascorbic acid, vitamin D3 ID evaluation noted and appreciated Continue supportive care --Very high-dimers;> 4000, CTA chest negative for PE, lower extremity Doppler negative DVT However patient has severe COVID-19 pneumonia, needed very high flow nasal cannula oxygen, On empiric therapeutic anticoagulation with Lovenox, transition to Eliquis -- SIRS (systemic inflammatory response syndrome) Current Visit: Yes Status: Acute Due to COVID-19 --Bilateral pneumonia Current Visit: Yes Status: Acute Procalcitonin is normal, no antibiotics per ID --Hypokalemia Current Visit: Yes Status: Acute Resolved -- Anemia Current Visit: Yes Status: Chronic Low stable hemoglobin 9.8 --Hyponatremia/present on admission Current Visit: Yes Status: Acute Resolved -- Transaminitis Current Visit: Yes Status: Acute Secondary to COVID-19, trending down --Morbid obesity; BMI 35.0/obesity hypoventilation Current Visit: Yes Status: Chronic Outpatient sleep study to rule out obstructive sleep apnea Patient needs weight reduction when medically stable Diet modification and exercise as tolerated and weight reduction -- DVT prophylaxis; Current Visit: Yes Status: Acute On anticoagulation Closely monitor the patient and adjust management as needed Plan of care reviewed with the patient and her nurse Patient is stable to be transferred out of IMCU today to medical floor Recommend PT OT, discharge planning, home O2 evaluation prior to discharge Possible discharge in 1 to 2 days if stable Daily hospital course: 01/03: Patient has mild to moderate dyspnea at rest and with conversation. She is currently on oxygen O2 and FiO2 60%. She is unable to tolerate exertion. The plan is to continue current regimen and wean O2 as tolerated. She will be monitored closely for worsening of hypoxia or respiratory decompensation. Discussed with the patient and the nursing staff. 01/04: Hypoxia slightly worse, O2 increased from 10 to 15 L today. She has some productive cough which is painful. She is unable to tolerate exertion. She continued have some nausea and diarrhea. However she is able to tolerate Ensure well. Hemodynamically otherwise stable. Mentating well. The plan is to continue current regimen and wean O2 as tolerated. We will continue to monitor closely since hypoxia is getting worse. Pulmonary is following. Discussed with the patient and the nursing staff. 01/05/2021; patient continues to require 15 L oxygen In mild distress, Continue current management wean oxygen as tolerated 01/06/2021; patient remains on supplemental nasal cannula oxygen 15 L Wean as tolerated 01/07/2021; patient is on high flow nasal cannula oxygen 28 L/100%/95% FiO2 Very poor prognosis, continue current management 01/08/2021; patient is on high flow nasal cannula oxygen at 15 L/100%/97% O2 sats Wean as tolerated, home O2 evaluation Critically ill with very poor prognosis Patient is aware We will try to contact family to update them patient's condition 01/09/2021; On high flow nasal cannula 10 L, wean as tolerated Wean as tolerated 01/10/2021; patient feels slightly better. On 8 L of nasal cannula oxygen Wean as tolerated, patient is stable to be transferred out of [facility] if bed is available on the floor 01/11/2021; patient is requiring 4-6 L of nasal cannula oxygen saturating 98% Patient is stable to be transferred out of IMCU to medical floor We will also request PT evaluation and treat Possible discharge in 1 to 2 days if stable 01/12/21; Patient is requiring 6 L nasal cannula O2 Resting room air, 6-minute walk room air O2 sat evaluation Home O2 set up as needed, PT evaluation and discharge needs Possible discharge in 1 to 2 days if stable Disposition; home O2 evaluation, follow PT recommendations DC in 1 to 2 days , DC planning per case management 01/13: Patient at rest yesterday evening and today morning on room air is 93%, will repeat oxygen eval in am for excersise home o2. May need home o2 to go home. Disposition: HOME / SELF CARE / HOMELESS Exam - Constitutional Vitals: Temp Pulse Resp BP Pulse Ox 97.8 F 93 H 20 119/63 95 01/13/21 05:39 01/13/21 05:39 01/13/21 05:39 01/13/21 05:39 01/13/21 05:39 Plan Activity: advance as tolerated, fall precautions Diet: low fat Special Instructions: record daily weights, record daily BP diary, home oxygen via (nasal cannula @ 3 liters per minute) Durable Medical Equipment Needed Upon Discharge: Oxygen Plan of Treatment: continue isolation and mask useage, recommend vaccination per CDC guideline. Follow up with: PRIMARY CAREMD [Primary Care Provider] - 3-5 Days YIFAN STORY MD [Staff Physician] - 7 Days Prescriptions: Apixaban [Eliquis] 5 mg PO Q12HR #60 tablet guaiFENesin ER [Mucinex ER] 600 mg PO BID #14 tablet Famotidine [Pepcid] 20 mg PO BID #60 tablet Prednisone [predniSONE 10 mg (6-Day Pack, 21 Tabs)] 10 mg PO .TAPER #1 tab.ds.pk Benzonatate [Tessalon Perles] 100 mg PO Q8HR PRN #60 capsule PRN Reason: Cough Ascorbic Acid [Vitamin C] 500 mg PO BID #60 tablet Zinc Sulfate 220 mg PO BID #60 capsule
[2021-01-13] MEDS: ASCORBIC ACID 500 MG TAB PO SCH (10:23)
[2021-01-13] MEDS: FAMOTIDINE 20 MG TAB PO SCH (10:23)
[2021-01-13] MEDS: ZINC SULFATE 220 MG CAP PO SCH (10:23)
[2021-01-13] MEDS: guaiFENesin ER 600 MG TAB PO SCH (10:23)
[2021-01-13] MEDS: APIXABAN 5 MG TAB PO SCH (10:23)
[2021-01-13 12:32] VITALS: BP 105/77
== END 2021-01-13 16:30 | disposition home health service (06) | DRG 177 ==
LOC: ED 11:58 → 3A 13:50 → OBSVTOIN 01-01 09:13 → IMCU 01-02 22:19 → 3A 01-11 18:15
PROVIDERS: ADMIT Internal Medicine; ATTEND Internal Medicine
PROC: XW033E5 Introduction of Remdesivir Anti-infective into Peripheral Vein, Percutaneous Approach, New Technology Group 5 (ICD-10-PCS; principal; 2021-01-01)
PROC: 5A0945A Assistance with Respiratory Ventilation, 24-96 Consecutive Hours, High Flow/Velocity Cannula (ICD-10-PCS; 2021-01-06)
DX: U07.1 COVID-19 (principal); J96.01 Acute respiratory failure with hypoxia; J12.82 Pneumonia due to coronavirus disease 2019; E87.1 Hypo-osmolality and hyponatremia; R74.01 Elevation of levels of liver transaminase levels; Z68.41 Body mass index [BMI] 40.0-44.9, adult; R65.10 Systemic inflammatory response syndrome (SIRS) of non-infectious origin without acute organ dysfunction; E87.6 Hypokalemia; E66.2 Morbid (severe) obesity with alveolar hypoventilation; Z71.3 Dietary counseling and surveillance; D50.9 Iron deficiency anemia, unspecified
CPT/HCPCS: 36415; 71045; 71275; 80048; 80053; 82565; 82728; 83615; 83735; 84145; 84702; 85025; 85027; 85379; 85610; 85730; 86140; 87040; 93005; 93970; 94760; G0378; J0456; J0696; J1100; J1650; J7030; J7050; Q9967; U0003